=== PATIENT | female | born 1940 | race Caucasian/White ===

== ENCOUNTER 2020-10-24 09:56 | Outpatient (CLI) | payer MEDICARE, MEDICAID, SELFPAY ==
--- NOTE | 2020-10-24 10:08 | USCV_ITS ---
Delisa Plascencia Age: 80 Gender: F : 1940 Exam Date: 10/24/2020 10:23 Ordering Phys: Pallavi Quesada VULNERABILITY RESEARCHER VULNERABILITY RESEARCHER Technologist: Evangelina Arthur Exam Location: [facility] [place] Indication: LLE SWELLING HISTORY: LLE swelling PROCEDURES: On the left side, the common femoral, superficial femoral, profunda femoral, popliteal, posterior tibial, greater saphenous veins, and the peroneal trunk were identified and interrogated in the standard fashion. FINDINGS: Negative for DVT and superficial thrombus in LLE. CONCLUSIONS No evidence of left lower extremity DVT. Hieu Cheney MD (Electronically Signed) Final Date: 24 Oct 2020 13:13 S
== END 2020-10-24 09:57 | disposition home or self-care (01) ==
LOC: RAD 10:03
PROVIDERS: PCP Family Medicine; Visit Provider Registered Nurse
DX: M79.89 Other specified soft tissue disorders (principal); M79.662 Pain in left lower leg
CPT/HCPCS: 93971

== ENCOUNTER → 2021-08-18 14:04 | Outpatient (BNVA) | payer MEDICARE, MEDICAID, SELFPAY | PROVIDERS: PCP Family Medicine; Referring Provider Family Medicine; Visit Provider Orthopaedic Surgery | DX: M54.50 Low back pain, unspecified (principal) | CPT/HCPCS: 72110 ==

== ENCOUNTER → 2021-08-24 10:13 | Outpatient (BNVA) | payer MEDICARE, MEDICAID, SELFPAY | PROVIDERS: PCP Family Medicine; Referring Provider Orthopaedic Surgery; Visit Provider Anesthesiology Pain Medicine | DX: M48.062 Spinal stenosis, lumbar region with neurogenic claudication (principal); M47.816 Spondylosis without myelopathy or radiculopathy, lumbar region; M54.16 Radiculopathy, lumbar region; M79.605 Pain in left leg; Z79.891 Long term (current) use of opiate analgesic | CPT/HCPCS: 99204 ==

== ENCOUNTER 2022-03-21 03:42 | Emergency (ER) | payer MEDICARE, MEDICAID, SELFPAY ==
[2022-03-21 03:44] VITALS: BP 150/89; PULSE 63; RESP 17; TEMP 36.8; O2SAT 95; BMI 29.0
--- NOTE | 2022-03-21 04:06 | XRR_ITS ---
PROCEDURE INFORMATION: Exam: XR Chest Exam date and time: 03/21/2022 4:23 AM Age: 82 years old Clinical indication: Pain; Chest pressure; Additional info: Chest pain TECHNIQUE: Imaging protocol: Radiologic exam of the chest. Views: 1 view. COMPARISON: CR XR chest 2V* [id number] 12/21/2015 2:57 PM FINDINGS: Lungs: Some strandy opacities are seen in the right lower hemithorax likely representing atelectasis. Pleural spaces: There is blunting of the left costophrenic recess possibly secondary to a small left pleural effusion versus pleural scarring. Heart/Mediastinum: Unremarkable. No cardiomegaly. Bones/joints: Unremarkable. XR/XR chest 1V portable [id number] IMPRESSION: 1. The left hemidiaphragm is obscured likely secondary to a small left pleural effusion versus pleural scarring. 2. Strandy opacities in the right lung base most probably represents atelectasis.
--- NOTE | 2022-03-21 04:10 | ED_ITS ---
HPI - Chest Pain General: Chief Complaint: Chest Pain Stated Complaint: Chest Pain Time Seen by Provider: 03/21/22 03:45 Source: patient and EMS Mode of arrival: EMS Limitations: no limitations History of Present Illness: 82-year-old female states that she started having chest pain around 11 last night. States she felt like a band around her chest she states she does have reflux and has not been taking her medicine for that she states she took a Gas-X and her pain did not improve she did take an aspirin at home and 1 nitro in route states that she is currently pain-free she denies any diaphoresis or radiation of her pain. She denies any cough or fever. Associated symptoms: Deny abdominal pain, dyspnea, fever(s), nausea or vomiting Review of Systems Const: Denies: fever(s), chills, body aches or change in appetite Eyes: Denies: blurry vision or eye discomfort ENMT: Denies: throat pain or dental pain Card: Reports: chest pain Resp: Denies: dyspnea GI: Denies: abdominal pain, nausea, vomiting or diarrhea : Denies: dysuria Musc: Denies: neck pain or back pain Skin/Breast: Denies: rash Neuro: Denies: headache(s) Psych: Denies: depression Bert/Lymph: Denies: easy bruising All/Imm: Denies: urticaria PFSH ED PFSH: Medical History Chronic kidney disease Hypertension Parkinson disease Family History Other CAD (coronary artery disease) Cancer Chronic kidney disease (CKD) Dementia Diabetes Hyperlipidemia Hypertension Denies family history of Clotting disorder Psychiatric illness Suicide Anesthesia complication Bleeding disorder Family history of premature coronary artery disease Lung disease Stroke Social History Smoking and tobacco status: never smoked Second hand smoke exposure: No Alcohol intake: never Lives independently: Yes Household members: none Housing: Apartment Marital status: History of recent travel: No Physical Exam Const: COMMON NORMALS: no acute distress, patient oriented x3 and healthy appearing HENMT: COMMON NORMALS: normocephalic and atraumatic HEAD & SCALP: normocephalic and atraumatic Eye: COMMON NORMALS: Equal, round and reactive pupils present and EOMs intact bilaterally PUPIL: Yes Equal, round and reactive pupils present Neck/C-Spine: COMMON NORMALS: full ROM and supple Chest: COMMONS NORMALS: normal inspection of the chest and normal palpation of entire chest wall Resp: COMMON NORMALS: normal respiratory effort, No retractions, No use of accessory muscles and clear to auscultation bilaterally AUSCULTATION: clear to auscultation bilaterally Cardio: COMMON NORMALS: regular rate, regular rhythm and No murmurs present (Cardio) RATE: regular rate RHYTHM: regular rhythm GI: COMMON NORMALS: Normal to inspection, nondistended, normoactive bowel sounds present, Soft to palpation, non-tender and no masses PALPATION: Yes Soft to palpation Extremity: COMMON NORMALS: normal to inspection and full ROM Neuro: COMMON NORMALS: patient oriented x3, moves all extremities and no focal motor deficits Psych: COMMON NORMALS: mental status grossly normal, Normal thought process present and cooperative THOUGHT PROCESS: Normal thought process present Skin: COMMON NORMALS: no rashes or lesions noted and no wounds GENERAL SKIN EXAM: no rashes or lesions noted Course Vital Signs: Vital signs: Vital Signs Temperature 98.2 F 03/21/22 03:44 Pulse Rate 76 03/21/22 05:00 Respiratory Rate 20 H 03/21/22 05:00 Blood Pressure 152/91 03/21/22 05:00 Pulse Oximetry 93 03/21/22 05:00 Oxygen Delivery Me thod 03/21/22 03:44 MDM - Chest Pain Medical Decision Making Patient presents for chest pain is since been resolved. Patient is felt much improved here she is requested to nursing that she wanted to go home. I went and spoke to her at length informed her her first troponin was 14 would like to do a 2-hour troponin to trend it she states that she feels better and would like to just go home. She has medical decision-making capacity she refuses stay for 2-hour troponin she has been pain-free here she is to follow-up with her PCP and if she has any other pain she is return she understands agrees to this plan. Lab Data : 03/21/22 03:44 03/21/22 03:44 Laboratory Results WBC 9.2 10^3/uL (4.0-10.0) 03/21/22 03:44 RBC 5.16 10^6/uL (4.1-5.3) 03/21/22 03:44 Hgb 15.2 g/dL (11.5-15.3) 03/21/22 03:44 Hct 47.8 % (37.0-47.0) H 03/21/22 03:44 MCV 92.6 fl (81-99) 03/21/22 03:44 MCH 29.5 pg (28.0-34.0) 03/21/22 03:44 MCHC 31.8 g/dL (30.0-36.0) 03/21/22 03:44 RDW 14.3 % (12.1-15.1) 03/21/22 03:44 Plt Count 176 10^3/cmm (130-400) 03/21/22 03:44 MPV 11.6 fL (7.4-10.4) H 03/21/22 03:44 Neut % (Auto) 72.9 % 03/21/22 03:44 Lymph % (Auto) 15.3 % 03/21/22 03:44 [place] % (Auto) 6.4 % 03/21/22 03:44 Eos % (Auto) 3.7 % 03/21/22 03:44 Baso % (Auto) 0.9 % 03/21/22 03:44 Neut # (Auto) 6.71 10^3/uL (1.8-7.7) 03/21/22 03:44 Lymph # (Auto) 1.4 10^3/uL (0.8-4.8) 03/21/22 03:44 [place] # (Auto) 0.6 10^3/uL (0.2-0.9) 03/21/22 03:44 Eos # (Auto) 0.3 10^3/uL (0.0-0.8) 03/21/22 03:44 Baso # (Auto) 0.1 10^3/uL (0.0-0.1) 03/21/22 03:44 Nucleated RBC % (auto) 0 % 03/21/22 03:44 Nucleated RBCs # 0.0 /100WBC 03/21/22 03:44 Sodium 136 mmol/L (136-145) 03/21/22 03:44 Potassium 4.1 mmol/L (3.5-5.1) 03/21/22 03:44 Chloride 98 mmol/L (98-107) 03/21/22 03:44 Carbon Dioxide 31 mmol/L (22-29) H 03/21/22 03:44 Anion Gap 11.1 (5-19) 03/21/22 03:44 BUN 24 mg/dL (8-23) H 03/21/22 03:44 Creatinine 0.9 mg/dL (0.5-0.9) 03/21/22 03:44 GFR Calculation Not Reportable 03/21/22 03:44 Glucose 109 mg/dL (65-115) 03/21/22 03:44 Calculated Osmolality 287 mOsm/kg (285-295) 03/21/22 03:44 Calcium 9.9 mg/dL (8.5-10.5) 03/21/22 03:44 Total Bilirubin 0.5 mg/dL (0.15-1.2) 03/21/22 03:44 AST 14 U/L (0-32) 03/21/22 03:44 ALT 24 U/L (0-33) 03/21/22 03:44 Alkaline Phosphatase 86 U/L (35-105) 03/21/22 03:44 Troponin T Baseline 12 ng/L (0-10) H 03/21/22 03:44 Total Protein 6.5 g/dL (6.6-8.7) L 03/21/22 03:44 Albumin 3.7 g/dL (3.5-5.2) 03/21/22 03:44 Globulin 2.8 g/dL (1.3-4.6) 03/21/22 03:44 EKG Data EKG 1: I personally reviewed and interpreted this EKG as follows: EKG interpretation date: 03/21/22 EKG interpretation time: 03:52 Discharge Plan Discharge Patient Disposition: Home Clinical Impression: Chest pain Condition: Stable Prescriptions: No Action aspirin 81 mg tablet,delayed release (DR/EC) 81 mg PO DAILY trazodone 50 mg tablet 50 mg PO .HS cyclobenzaprine 5 mg tablet 5 mg PO TID PRN (Reason: muscle spasm) Qty: 60 0RF lorazepam [Ativan] 0.5 mg tablet 0.5 mg PO DAILY PRN (Reason: anxiety) Qty: 1 0RF Rx Instructions: Take 1 hour prior to procedure. tramadol 50 mg tablet 50 mg PO Q6H PRN losartan 50 mg tablet 50 mg PO DAILY omeprazole 20 mg capsule,delayed release(DR/EC) 20 mg PO DAILY ropinirole 4 mg tablet 4 mg PO TID amlodipine [Norvasc] 5 mg tablet 5 mg PO DAILY metoprolol tartrate 25 mg tablet 12.5 mg PO BID lovastatin 40 mg tablet 40 mg PO DAILY hydrochlorothiazide 12.5 mg tablet 12.5 mg PO DAILY pantoprazole [Protonix] 40 mg tablet,delayed release (DR/EC) 40 mg PO DAILY polyethylene glycol 3350 [Miralax] 17 gram/dose powder 17 gm PO DAILY nitroglycerin 0.4 mg tablet, sublingual 0.4 mg SUBLINGUAL Q5M PRN silver sulfadiazine [Silvadene] 1 % cream 1 applic TOPICAL DAILY Qty: 20 0RF Rx Instructions: apply a 1.5 mm thickness benzonatate [Tessalon Perles] 100 mg capsule 100 mg PO TID PRN (Reason: cough) 15 Days Qty: 45 0RF prednisone 20 mg tablet 20 mg PO DAILY Qty: 15 0RF Rx Instructions: Take 60 mg daily for days 1,2,3 Take 40mg daily for days 4, 5 Take 20 mg daily for days 6, 7 Discharge Orders: Discharge ED (Routine); Ordered 03/21/22 Ordered By: Belgica Caicedo Referrals: Pallavi Quesada FNP [Primary Care Provider] - 1-3 days Discharge Diet: Advance as tolerated Discharge Activity: Resume usual activity Patient Instructions: Chest Pain (ED) Coding Level of Care Code ED Head Orthopedic Team Physician for Chg Fwd Exam Comprehensive
[2022-03-21 04:15] LABS: Basophils # 0.1 10^3/uL (0.0-0.1); Basophils % 0.9 %; Eosinophils # 0.3 10^3/uL (0.0-0.8); Eosinophils % 3.7 %; Hematocrit 47.8 % (37.0-47.0); Hemoglobin 15.2 g/dL (11.5-15.3); Lymphocytes # 1.4 10^3/uL (0.8-4.8); Lymphocytes % 15.3 %; Mean Corpuscular HGB Conc 31.8 g/dL (30.0-36.0); Mean Corpuscular Hemoglobin 29.5 pg (28.0-34.0); Mean Corpuscular Volume 92.6 fl (81-99); Mean Platelet Volume 11.6 fL (7.4-10.4); Monocytes # 0.6 10^3/uL (0.2-0.9); Monocytes % 6.4 %; Neutrophils # 6.71 10^3/uL (1.8-7.7); Neutrophils % 72.9 %; Nucleated Red Blood Cells % 0 %; Platelet Count 176 10^3/cmm (130-400); Red Blood Count 5.16 10^6/uL (4.1-5.3); Red Cell Distribution Width 14.3 % (12.1-15.1); White Blood Count 9.2 10^3/uL (4.0-10.0)
[2022-03-21 04:31] LABS: Alanine Aminotransferase 24 U/L (0-33); Albumin Level 3.7 g/dL (3.5-5.2); Alkaline Phosphatase 86 U/L (35-105); Aspartate Amino Transferase 14 U/L (0-32); Blood Urea Nitrogen 24 mg/dL (8-23); Calcium 9.9 mg/dL (8.5-10.5); Carbon Dioxide 31 mmol/L (22-29); Chloride 98 mmol/L (98-107); Globulin 2.8 g/dL (1.3-4.6); Glucose 109 mg/dL (65-115); Osmolality Calculated 287 mOsm/kg (285-295); Sodium 136 mmol/L (136-145); Total Bilirubin 0.5 mg/dL (0.15-1.2); Total Protein 6.5 g/dL (6.6-8.7)
[2022-03-21 04:32] LABS: Troponin(5th) Baseline 12 ng/L (0-10)
[2022-03-21 04:41] LABS: Anion Gap 11.1 (5-19); Potassium 4.1 mmol/L (3.5-5.1)
[2022-03-21 05:00] VITALS: BP 152/91; PULSE 76; RESP 20; O2SAT 93
== END 2022-03-21 05:47 | disposition home or self-care (01) ==
PROVIDERS: Emergency Provider Emergency Medicine; PCP Registered Nurse
DX: R07.9 Chest pain, unspecified (principal); Z79.82 Long term (current) use of aspirin; I10 Essential (primary) hypertension; G20 Parkinson's disease
CPT/HCPCS: 71045; 80053; 84484; 85025; 99285

== ENCOUNTER → 2022-03-24 10:32 | Outpatient (BNVA) | payer MEDICARE, MEDICAID, SELFPAY | PROVIDERS: PCP Registered Nurse; Visit Provider Orthopaedic Surgery | DX: M25.551 Pain in right hip (principal) | CPT/HCPCS: 73502; 99203 ==

== ENCOUNTER 2022-10-22 15:04 | Emergency (ER) | payer MEDICARE, MEDICAID, SELFPAY ==
[2022-10-22] VITALS (43 sets, daily range): BP systolic 136–177; BP diastolic 78–120; PULSE 74–101; RESP 10–30; O2SAT 91–97
--- NOTE | 2022-10-22 15:13 | ECG_ITS ---
[facility] Test Date: 2022-10-22 Pat Name: Delisa Plascencia Department: Room: Gender: Female Production Control Specialist: : 1940 Requested By: Devin Saez Order Number: [id number] Tarik MD: Chloe Washington M.D. Measurements Intervals [address] Rate: 75 P: 8 MN: 151 QRS: -32 QRSD: 96 T: -13 QT: 407 QTc: 457 Interpretive Statements SINUS RHYTHM POSSIBLE LEFT ATRIAL ENLARGEMENT [-0.1mV P-WAVE IN V1/V2] LEFT AXIS DEVIATION [QRS AXIS < -30] PATTERN CONSISTENT WITH PULMONARY DISEASE POSSIBLE LEFT VENTRICULAR HYPERTROPHY [VOLTAGE CRITERIA PLUS LAE OR QRS WIDENING] Compared to ECG 11/25/2016 22:14:46 Left-axis deviation now present Electronically Signed On 10-23-2022 5:57:53 CDT by Chloe Washington M.D. [email or web address]
--- NOTE | 2022-10-22 15:13 | XRR_ITS ---
PROCEDURE INFORMATION: Exam: XR Chest Exam date and time: 10/22/2022 3:40 PM Age: 82 years old Clinical indication: Patient HX: Back pain she describes radiating to her chest she rates it an 8 of 10; Additional info: Chest pain TECHNIQUE: Imaging protocol: Radiologic exam of the chest. Views: 1 view. COMPARISON: CR XR chest 1V portable [id number] 03/21/2022 4:23 AM FINDINGS: Lungs: No focal airspace disease. Pleural spaces: Unremarkable. No pleural effusion. No pneumothorax. Heart/Mediastinum: Cardiomediastinal silhouette is within normal limits. Bones/joints: Unremarkable. XR/XR chest 1V portable [id number] IMPRESSION: No acute cardiopulmonary abnormality.
--- NOTE | 2022-10-22 15:15 | W.ED.CHESTPA ---
Documented by User: Devin Holt DO 10/24/22 07:05 HPI - Chest Pain General: Chief Complaint: Chest Pain Stated Complaint: chest pain Time Seen by Provider: 10/22/22 15:13 Source: patient Mode of arrival: ambulatory History of Present Illness: 82 yo female present to the ER with complaints of back pain. She had been sitting inside mostly resting she went outside to look at her cooper she began to have back pain she describes radiating to her chest she rates it an 8 of 10. She has no known cardiac history she went back inside and eventually called EMS. She was given 325 of aspirin she is also given Zofran 100 of fentanyl and nitro. She said she had no significant pain relief by the time she arrived here all the pain is gone. She does have osteoporosis and has had some pelvic bone fractures evidently that were idiopathic. She has no known cancer diagnosis. MD complaint: chest pain Onset (ago): minute(s) Timing of current episode: episodic Prior episodes: Yes Pain location: substernal Pain radiation: back Severity: mild Relieving factors: nothing Exacerbating factors: nothing Associated symptoms: Reports dyspnea; Deny abdominal pain, diaphoresis, fever(s), leg edema, nausea, palpitations, sense of impending doom, syncope or vomiting Treatment prior to arrival: aspirin, nitroglycerin and other (Zofran and fentanyl) Review of Systems Const: Denies: fever(s), chills, fatigue, malaise or diaphoresis Card: Reports: chest pain; Denies: palpitations or syncope Resp: Reports: dyspnea; Denies: productive cough or non-productive cough GI: Denies: abdominal pain, nausea or vomiting : Denies: flank pain, difficulty voiding, dysuria, urinary frequency or urinary urgency Skin/Breast: Denies: rash or pruritus PFS ED PFSH: Medical History Chronic kidney disease Hypertension Parkinson disease Family History Other CAD (coronary artery disease) Cancer Chronic kidney disease (CKD) Dementia Diabetes Hyperlipidemia Hypertension Denies family history of Clotting disorder Psychiatric illness Suicide Anesthesia complication Bleeding disorder Family history of premature coronary artery disease Lung disease Stroke Social History (Reviewed 10/22/22 @ 15:31 by FILI White Smoking and tobacco status: never smoked Second hand smoke exposure: No Alcohol intake: never Substance/Drug Use: never Lives independently: Yes Household members: none Housing: Apartment Marital status: Physical Exam Const: GENERAL APPEARANCE: cooperative and comfortable ORIENTATION/CONSCIOUSNESS: Yes awake, Yes oriented to person, Yes oriented to place and Yes oriented to time HENMT: COMMON NORMALS: normocephalic, atraumatic and hearing grossly normal bilaterally HEAD & SCALP: normocephalic and atraumatic Resp: COMMON NORMALS: normal respiratory effort, No retractions, No use of accessory muscles and clear to auscultation bilaterally AUSCULTATION: clear to auscultation bilaterally Cardio: COMMON NORMALS: regular rate, regular rhythm and No murmurs present (Cardio) RATE: regular rate RHYTHM: regular rhythm GI: COMMON NORMALS: Soft to palpation and No hepatosplenomegaly present AUSCULTATION: Yes normoactive bowel sounds PALPATION: Yes Soft to palpation, No Tenderness to palpation present (GI), No Guarding due to palpation present (GI) and Yes No hepatosplenomegaly present Extremity: COMMON NORMALS: normal to inspection, capillary refill normal, no clubbing, cyanosis or edema, no calf tenderness and no pedal edema Neuro: SENSORIUM/ORIENTATION: Yes oriented to person, Yes oriented to place and Yes oriented to time Skin: COMMON NORMALS: no rashes or lesions noted GENERAL SKIN EXAM: no rashes or lesions noted Course Vital Signs: Vital signs: Vital Signs Pulse Rate 101 H 10/22/22 19:58 Respiratory Rate 16 10/22/22 19:58 Blood Pressure 152/78 10/22/22 19:58 Pulse Oximetry 94 10/22/22 19:58 Oxygen Delivery Me thod Nasal Cannula 10/22/22 16:10 Oxygen Flow Rate 2 10/22/22 16:10 MDM - Chest Pain Medical Decision Making Care signed out to Dr. Herrmann at change of shift. See final notes for diagnosis and disposition. Received in checkout earlier from Dr. Alfaro. This lady has been hypertensive at times, although not severely. She was not hypoxic on room air. BC is normal. BMP is not remarkable. Delta troponin is 0.3. Creatinine is 0.7. EKG is not remarkable for ST change. Pain and shortness of breath are gone in this patient. With resolution of discomfort, no change in troponin, no significant hypoxia will be allowed discharged to follow-up. Discussed outpatient stress testing with the patient and her family. Have placed an order for this with case management. Lab Data 10/22/22 15:40 10/22/22 15:40 Radiology Impressions Chest X-Ray 10/22/22 15:13 IMPRESSION: No acute cardiopulmonary abnormality. Lumbar Spine X-Ray 10/22/22 15: IMPRESSION: No acute findings. Thoracic Spine X-Ray 10/22/22 15: IMPRESSION: There appears to be mild wedging of several midthoracic vertebral bodies, likely T6 through T9, age indeterminate. Consider CT for further evaluation. Laboratory Results WBC 9.0 10^3/uL (4.0-10.0) 10/22/22 15:40 RBC 4.47 10^6/uL (4.1-5.3) 10/22/22 15:40 Hgb 13.2 g/dL (11.5-15.3) 10/22/22 15:40 Hct 41.9 % (37.0-47.0) 10/22/22 15:40 MCV 93.7 fl (81-99) 10/22/22 15:40 MCH 29.5 pg (28.0-34.0) 10/22/22 15:40 MCHC 31.5 g/dL (30.0-36.0) 10/22/22 15:40 RDW 14.6 % (12.1-15.1) 10/22/22 15:40 Plt Count 203 10^3/cmm (130-400) 10/22/22 15:40 MPV 10.1 fL (7.4-10.4) 10/22/22 15:40 Neut % (Auto) 70.3 % 10/22/22 15:40 Lymph % (Auto) 17.4 % 10/22/22 15:40 Esmeralda % (Auto) 7.9 % 10/22/22 15:40 Eos % (Auto) 2.8 % 10/22/22 15:40 Baso % (Auto) 0.7 % 10/22/22 15:40 Neut # (Auto) 6.31 10^3/uL (1.8-7.7) 10/22/22 15:40 Lymph # (Auto) 1.6 10^3/uL (0.8-4.8) 10/22/22 15:40 Esmeralda # (Auto) 0.7 10^3/uL (0.2-0.9) 10/22/22 15:40 Eos # (Auto) 0.3 10^3/uL (0.0-0.8) 10/22/22 15:40 Baso # (Auto) 0.1 10^3/uL (0.0-0.1) 10/22/22 15:40 Nucleated RBC % (auto) 0 % 10/22/22 15:40 Nucleated RBCs # 0.0 /100WBC 10/22/22 15:40 Sodium 134 mmol/L (136-145) L 10/22/22 15:40 Potassium 3.8 mmol/L (3.5-5.1) 10/22/22 15:40 Chloride 98 mmol/L (98-107) 10/22/22 15:40 Carbon Dioxide 28 mmol/L (22-29) 10/22/22 15:40 Anion Gap 11.8 (5-19) 10/22/22 15:40 BUN 13 mg/dL (8-23) 10/22/22 15:40 Creatinine 0.7 mg/dL (0.5-0.9) 10/22/22 15:40 GFR Calculation Not Reportable 10/22/22 15:40 Glucose 86 mg/dL (65-115) 10/22/22 15:40 Calculated Osmolality 277 mOsm/kg (285-295) L 10/22/22 15:40 Calcium 8.5 mg/dL (8.5-10.5) 10/22/22 15:40 Total Bilirubin 0.4 mg/dL (0.15-1.2) 10/22/22 15:40 AST 12 U/L (0-32) 10/22/22 15:40 ALT 16 U/L (0-33) 10/22/22 15:40 Alkaline Phosphatase 282 U/L (35-105) H 10/22/22 15:40 Troponin T Baseline 12 ng/L (0-10) H 10/22/22 15:40 Troponin T 120 Minute 11.68 ng/L (0-10) H 10/22/22 18:03 Delta Troponin T -0.32 ABS# (0-10) L 10/22/22 18:03 Total Protein 5.4 g/dL (6.6-8.7) L 10/22/22 15:40 Albumin 3.6 g/dL (3.5-5.2) 10/22/22 15:40 Globulin 1.8 g/dL (1.3-4.6) 10/22/22 15:40 Discharge Plan Discharge Patient Disposition: Home Clinical Impression: Chest pain Condition: Stable Prescriptions: No Action aspirin 81 mg tablet,delayed release (DR/EC) 81 mg PO DAILY trazodone 50 mg tablet 50 mg PO BEDTIME cyclobenzaprine 5 mg tablet 5 mg PO TID PRN (Reason: muscle spasm) Qty: 60 0RF tramadol 50 mg tablet 50 mg PO Q6H PRN (Reason: Pain) losartan 50 mg tablet 50 mg PO DAILY ropinirole 4 mg tablet 4 mg PO TID amlodipine [Norvasc] 5 mg tablet 5 mg PO DAILY metoprolol tartrate 25 mg tablet 12.5 mg PO BID lovastatin 40 mg tablet 40 mg PO DAILY hydrochlorothiazide 12.5 mg tablet 12.5 mg PO DAILY pantoprazole [Protonix] 40 mg tablet,delayed release (DR/EC) 40 mg PO DAILY polyethylene glycol 3350 [Miralax] 17 gram/dose powder 17 gm PO DAILY PRN (Reason: Constipation) nitroglycerin 0.4 mg tablet, sublingual 0.4 mg SUBLINGUAL Q5M PRN (Reason: Chest Pain) silver sulfadiazine [Silvadene] 1 % cream 1 applic TOPICAL DAILY Qty: 20 0RF Rx Instructions: apply a 1.5 mm thickness primidone 50 mg tablet 50 mg PO DAILY potassium chloride 10 mEq tablet extended release 10 meq PO DAILY lidocaine 5 % adhesive patch,medicated 1 patch topical PRN PRN (Reason: Pain) gabapentin 100 mg capsule 100 mg PO TID celecoxib 50 mg capsule 50 mg PO BID diclofenac sodium 1 % gel 2 g TOPICAL PRN PRN (Reason: Pain) Discharge Orders: Discharge ED (Routine); Ordered 10/22/22 Ordered By: Colin Herrmann Referrals: Pallavi Quesada FNP [Primary Care Provider] - 4-7 days Patient Instructions: Chest Pain (ED) Activity Restrictions/Additional Instructions: Monitor blood pressure twice daily for the next few days, and report numbers to your physician. Case management will set you up for an outpatient stress test should your physician want to pursue that. You should get a call from them next week continue with your bone density scan set up on Tuesday, as this can provide more information as well as your outpatient follow-up appointments. Return for return of chest discomfort, shortness of breath, fever, mental status changes, or other concerning symptoms Coding Level of Care Code ED Gate Attendant for Chg Fwd Documented by User: Colin Herrmann DO 10/23/22 04:05 HPI - Chest Pain General: Chief Complaint: Chest Pain Stated Complaint: chest pain Time Seen by Provider: 10/22/22 15:13 PFSH ED PFSH: Medical History Chronic kidney disease Hypertension Parkinson disease Family History Other CAD (coronary artery disease) Cancer Chronic kidney disease (CKD) Dementia Diabetes Hyperlipidemia Hypertension Denies family history of Clotting disorder Psychiatric illness Suicide Anesthesia complication Bleeding disorder Family history of premature coronary artery disease Lung disease Stroke Social History Smoking and tobacco status: never smoked Second hand smoke exposure: No Alcohol intake: never Substance/Drug Use: never Lives independently: Yes Household members: none Housing: Apartment Marital status: Course Vital Signs: Vital signs: Vital Signs Pulse Rate 101 H 10/22/22 19:58 Respiratory Rate 16 10/22/22 19:58 Blood Pressure 152/78 10/22/22 19:58 Pulse Oximetry 94 10/22/22 19:58 Oxygen Delivery Me thod Nasal Cannula 10/22/22 16:10 Oxygen Flow Rate 2 10/22/22 16:10 MDM - Chest Pain Medical Decision Making Received in checkout earlier from Dr. Alfaro. This lady has been hypertensive at times, although not severely. She was not hypoxic on room air. BC is normal. BMP is not remarkable. Delta troponin is 0.3. Creatinine is 0.7. EKG is not remarkable for ST change. Pain and shortness of breath are gone in this patient. With resolution of discomfort, no change in troponin, no significant hypoxia will be allowed discharged to follow-up. Discussed outpatient stress testing with the patient and her family. Have placed an order for this with case management. Lab Data 10/22/22 15:40 10/22/22 15:40 Radiology Impressions Chest X-Ray 10/22/22 15:13 IMPRESSION: No acute cardiopulmonary abnormality. Lumbar Spine X-Ray 10/22/22 15:26 IMPRESSION: No acute findings. Thoracic Spine X-Ray 10/22/22 15: IMPRESSION: There appears to be mild wedging of several midthoracic vertebral bodies, likely T6 through T9, age indeterminate. Consider CT for further evaluation. Laboratory Results WBC 9.0 10^3/uL (4.0-10.0) 10/22/22 15:40 RBC 4.47 10^6/uL (4.1-5.3) 10/22/22 15:40 Hgb 13.2 g/dL (11.5-15.3) 10/22/22 15:40 Hct 41.9 % (37.0-47.0) 10/22/22 15:40 MCV 93.7 fl (81-99) 10/22/22 15:40 MCH 29.5 pg (28.0-34.0) 10/22/22 15:40 MCHC 31.5 g/dL (30.0-36.0) 10/22/22 15:40 RDW 14.6 % (12.1-15.1) 10/22/22 15:40 Plt Count 203 10^3/cmm (130-400) 10/22/22 15:40 MPV 10.1 fL (7.4-10.4) 10/22/22 15:40 Neut % (Auto) 70.3 % 10/22/22 15:40 Lymph % (Auto) 17.4 % 10/22/22 15:40 Esmeralda % (Auto) 7.9 % 10/22/22 15:40 Eos % (Auto) 2.8 % 10/22/22 15:40 Baso % (Auto) 0.7 % 10/22/22 15:40 Neut # (Auto) 6.31 10^3/uL (1.8-7.7) 10/22/22 15:40 Lymph # (Auto) 1.6 10^3/uL (0.8-4.8) 10/22/22 15:40 Esmeralda # (Auto) 0.7 10^3/uL (0.2-0.9) 10/22/22 15:40 Eos # (Auto) 0.3 10^3/uL (0.0-0.8) 10/22/22 15:40 Baso # (Auto) 0.1 10^3/uL (0.0-0.1) 10/22/22 15:40 Nucleated RBC % (auto) 0 % 10/22/22 15:40 Nucleated RBCs # 0.0 /100WBC 10/22/22 15:40 Sodium 134 mmol/L (136-145) L 10/22/22 15:40 Potassium 3.8 mmol/L (3.5-5.1) 10/22/22 15:40 Chloride 98 mmol/L (98-107) 10/22/22 15:40 Carbon Dioxide 28 mmol/L (22-29) 10/22/22 15:40 Anion Gap 11.8 (5-19) 10/22/22 15:40 BUN 13 mg/dL (8-23) 10/22/22 15:40 Creatinine 0.7 mg/dL (0.5-0.9) 10/22/22 15:40 GFR Calculation Not Reportable 10/22/22 15:40 Glucose 86 mg/dL (65-115) 10/22/22 15:40 Calculated Osmolality 277 mOsm/kg (285-295) L 10/22/22 15:40 Calcium 8.5 mg/dL (8.5-10.5) 10/22/22 15:40 Total Bilirubin 0.4 mg/dL (0.15-1.2) 10/22/22 15:40 AST 12 U/L (0-32) 10/22/22 15:40 ALT 16 U/L (0-33) 10/22/22 15:40 Alkaline Phosphatase 282 U/L (35-105) H 10/22/22 15:40 Troponin T Baseline 12 ng/L (0-10) H 10/22/22 15:40 Troponin T 120 Minute 11.68 ng/L (0-10) H 10/22/22 18:03 Delta Troponin T -0.32 ABS# (0-10) L 10/22/22 18:03 Total Protein 5.4 g/dL (6.6-8.7) L 10/22/22 15:40 Albumin 3.6 g/dL (3.5-5.2) 10/22/22 15:40 Globulin 1.8 g/dL (1.3-4.6) 10/22/22 15:40 Discharge Plan Discharge Patient Disposition: Home Clinical Impression: Chest pain Condition: Stable Prescriptions: No Action aspirin 81 mg tablet,delayed release (DR/EC) 81 mg PO DAILY trazodone 50 mg tablet 50 mg PO BEDTIME cyclobenzaprine 5 mg tablet 5 mg PO TID PRN (Reason: muscle spasm) Qty: 60 0RF tramadol 50 mg tablet 50 mg PO Q6H PRN (Reason: Pain) losartan 50 mg tablet 50 mg PO DAILY ropinirole 4 mg tablet 4 mg PO TID amlodipine [Norvasc] 5 mg tablet 5 mg PO DAILY metoprolol tartrate 25 mg tablet 12.5 mg PO BID lovastatin 40 mg tablet 40 mg PO DAILY hydrochlorothiazide 12.5 mg tablet 12.5 mg PO DAILY pantoprazole [Protonix] 40 mg tablet,delayed release (DR/EC) 40 mg PO DAILY polyethylene glycol 3350 [Miralax] 17 gram/dose powder 17 gm PO DAILY PRN (Reason: Constipation) nitroglycerin 0.4 mg tablet, sublingual 0.4 mg SUBLINGUAL Q5M PRN (Reason: Chest Pain) silver sulfadiazine [Silvadene] 1 % cream 1 applic TOPICAL DAILY Qty: 20 0RF Rx Instructions: apply a 1.5 mm thickness primidone 50 mg tablet 50 mg PO DAILY potassium chloride 10 mEq tablet extended release 10 meq PO DAILY lidocaine 5 % adhesive patch,medicated 1 patch topical PRN PRN (Reason: Pain) gabapentin 100 mg capsule 100 mg PO TID celecoxib 50 mg capsule 50 mg PO BID diclofenac sodium 1 % gel 2 g TOPICAL PRN PRN (Reason: Pain) Discharge Orders: Discharge ED (Routine); Ordered 10/22/22 Ordered By: Colin Herrmann Referrals: Pallavi Quesada FNP [Primary Care Provider] - 4-7 days Patient Instructions: Chest Pain (ED) Activity Restrictions/Additional Instructions: Monitor blood pressure twice daily for the next few days, and report numbers to your physician. Case management will set you up for an outpatient stress test should your physician want to pursue that. You should get a call from them next week continue with your bone density scan set up on Tuesday, as this can provide more information as well as your outpatient follow-up appointments. Return for return of chest discomfort, shortness of breath, fever, mental status changes, or other concerning symptoms Coding Level of Care Code ED Gate Attendant for Kunal Chavez
--- NOTE | 2022-10-22 15:26 | XRR_ITS ---
PROCEDURE INFORMATION: Exam: XR Thoracic Spine Exam date and time: 10/22/2022 3:41 PM Age: 82 years old Clinical indication: Pain in thoracic spine; Other: Back pain she describes radiating to her chest she rates it an 8 of 10 TECHNIQUE: Imaging protocol: Radiologic exam of the thoracic spine. Views: 3 views. COMPARISON: CR XR chest 1V portable [id number] 10/22/2022 3:40 PM FINDINGS: Bones/joints: There appears to be mild wedging of several midthoracic vertebral bodies, likely T6 through T9, age indeterminate. No malalignment. Osteopenia. Soft tissues: Unremarkable. XR/XR thoracic spine 3V* [id number] IMPRESSION: There appears to be mild wedging of several midthoracic vertebral bodies, likely T6 through T9, age indeterminate. Consider CT for further evaluation.
--- NOTE | 2022-10-22 15:26 | XRR_ITS ---
PROCEDURE INFORMATION: Exam: XR Lumbosacral Spine Exam date and time: 10/22/2022 3:47 PM Age: 82 years old Clinical indication: Patient HX: Back pain she describes radiating to her chest she rates it an 8 of 10 TECHNIQUE: Imaging protocol: Radiologic exam of the lumbosacral spine. Views: 2 or 3 views. COMPARISON: CR XR lumbar spine min 4V [id number] 08/18/2021 2:12 PM FINDINGS: Bones/joints: No acute fracture. Levocurvature of the lumbar spine. Similar mild irregularity of the superior endplate of L2. Moderate degenerative disc disease at L3-L4 and L5-S1. Osteopenia. Soft tissues: Unremarkable. Vasculature: Atherosclerotic calcification of the abdominal aorta. XR/XR lumbar spine 2-3V* [id number] IMPRESSION: No acute findings.
[2022-10-22 15:53] LABS: Basophils # 0.1 10^3/uL (0.0-0.1); Basophils % 0.7 %; Eosinophils # 0.3 10^3/uL (0.0-0.8); Eosinophils % 2.8 %; Hematocrit 41.9 % (37.0-47.0); Hemoglobin 13.2 g/dL (11.5-15.3); Lymphocytes # 1.6 10^3/uL (0.8-4.8); Lymphocytes % 17.4 %; Mean Corpuscular HGB Conc 31.5 g/dL (30.0-36.0); Mean Corpuscular Hemoglobin 29.5 pg (28.0-34.0); Mean Corpuscular Volume 93.7 fl (81-99); Mean Platelet Volume 10.1 fL (7.4-10.4); Monocytes # 0.7 10^3/uL (0.2-0.9); Monocytes % 7.9 %; Neutrophils # 6.31 10^3/uL (1.8-7.7); Neutrophils % 70.3 %; Nucleated Red Blood Cells % 0 %; Platelet Count 203 10^3/cmm (130-400); Red Blood Count 4.47 10^6/uL (4.1-5.3); Red Cell Distribution Width 14.6 % (12.1-15.1)
[2022-10-22 16:18] LABS: Alanine Aminotransferase 16 U/L (0-33); Albumin Level 3.6 g/dL (3.5-5.2); Alkaline Phosphatase 282 U/L (35-105); Anion Gap 11.8 (5-19); Aspartate Amino Transferase 12 U/L (0-32); Blood Urea Nitrogen 13 mg/dL (8-23); Calcium 8.5 mg/dL (8.5-10.5); Carbon Dioxide 28 mmol/L (22-29); Chloride 98 mmol/L (98-107); Creatinine Clr Calc Pharmacy 51.4073; Globulin 1.8 g/dL (1.3-4.6); Glucose 86 mg/dL (65-115); Osmolality Calculated 277 mOsm/kg (285-295); Potassium 3.8 mmol/L (3.5-5.1); Sodium 134 mmol/L (136-145); Total Bilirubin 0.4 mg/dL (0.15-1.2); Total Protein 5.4 g/dL (6.6-8.7)
[2022-10-22 16:21] LABS: Troponin(5th) Baseline 12 ng/L (0-10)
--- NOTE | 2022-10-22 17:22 | ECG_ITS ---
[facility] Test Date: 2022-10-22 Pat Name: Delisa Plascencia Department: Room: Gender: Female [employer]: : 1940 Requested By: Devin Saez Order Number: [id number] Tarik MD: Chloe Washington M.D. Measurements Intervals [place] Rate: 80 P: 9 LA: 155 QRS: -21 QRSD: 89 T: -4 QT: 375 QTc: 433 Interpretive Statements SINUS RHYTHM POSSIBLE LEFT ATRIAL ENLARGEMENT [-0.1mV P-WAVE IN V1/V2] BORDERLINE LEFT AXIS DEVIATION [QRS AXIS < -20] POSSIBLE LEFT VENTRICULAR HYPERTROPHY [VOLTAGE CRITERIA PLUS LAE OR QRS WIDENING] Compared to ECG 10/22/2022 15:21:57 No significant changes Electronically Signed On 10-23-2022 6:18:16 CDT by Chloe Washington M.D. [email or web address] mary[facility], [place] [id number]
--- NOTE | 2022-10-22 18:48 | PC.NURSE ---
Pt blood pressure was reading high on automatic cuff, check BP manually twice and it was 150/85 and 158/87. [address] Dr. Herrmann.
[2022-10-22 19:26] LABS: Troponin 5 2HR 11.68 ng/L (0-10)
[2022-10-22 19:28] LABS: Troponin 5 2HR Delta -0.32 ABS# (0-10)
--- NOTE | 2022-10-24 06:02 | DCPLANNER ---
Addendum entered by Karo Lemus 01/14/23 07:05: bdc manager received the following message from centralized scheduling regarding follow up testing: Lisandra lala [facility] called and cancelled this test on 12-08-22. We have made it inactive Original Note: bdc manager had message to schedule an outpatient stress test for patient. bdc manager faxed signed order to centralized scheduling, who will call patient with appointment information.
== END 2022-10-22 20:03 | disposition home or self-care (01) ==
PROVIDERS: Family Medicine; Emergency Provider Emergency Medicine; PCP Registered Nurse
DX: R07.9 Chest pain, unspecified (principal); Z79.82 Long term (current) use of aspirin; I12.9 Hypertensive chronic kidney disease with stage 1 through stage 4 chronic kidney disease, or unspecified chronic kidney disease; N18.9 Chronic kidney disease, unspecified; G20 Parkinson's disease
CPT/HCPCS: 71045; 72072; 72100; 80053; 84484; 85025; 93005; 99285

== ENCOUNTER → 2023-01-13 12:53 | Outpatient (BNVA) | payer MEDICARE, MEDICAID, SELFPAY | PROVIDERS: PCP Registered Nurse; Referring Provider Nurse Practitioner Family; Visit Provider Physician Assistant | DX: M80.08XA Age-related osteoporosis with current pathological fracture, vertebra(e), initial encounter for fracture | CPT/HCPCS: 72110; 72220; 99204 ==

== ENCOUNTER 2023-02-14 10:46 | Outpatient (CLI) | payer MEDICARE, MEDICAID, SELFPAY ==
--- NOTE | 2023-02-14 11:00 | MR_ITS ---
WS: [id number] MRI THORACIC SPINE WITHOUT CONTRAST TECHNIQUE: Sagittal T1, T2 and STIR imaging. Axial T2 imaging. Noncontrast imaging obtained. CLINICAL INFORMATION: SPINAL STENOSIS COMPARISON: None. FINDINGS: Mild thoracic curve. Mild thoracic kyphosis. No acute compression fractures. Mild chronic appearing a nterior wedging at T7. Mild chronic appearing compression superior endplate at T1. Mild disc bulging at T11-T12 and T12-L1. Cord signal is normal. No high-grade central canal stenosis. Mild central canal stenosis cervical spine on the clinic administrator imaging at C4-C5 and C5-C6. Normal paravertebral soft tissues. Normal caliber thoracic aorta. Incidental aberrant RIGHT subclavia n artery. Adrenal glands are normal. Partially visualized LEFT parapelvic renal cysts. IMPRESSION: 1. Mild chronic appearing anterior wedging at T7. Mild chronic appearing compression superior endpla te of T1. 2. No acute compression fractures. 3. Mild facet arthropathy lower thoracic spine. 4. Cord signal appears normal. 5. No high-grade central canal stenosis.
--- NOTE | 2023-02-14 11:00 | MR_ITS ---
WS: [id number] MRI LUMBAR SPINE NONCONTRAST TECHNIQUE: Sagittal T1, T2 and STIR imaging. Axial T1 and T2 imaging. CLINICAL INFORMATION: See DX COMPARISON: Outside MRI 07/24/2021 FINDINGS: Mild lumbar curve. No acute compression. Slight anterolisthesis L5 on S1. Mild disc bulging worse at L2-L3 L3-L4 and L4-L5 similar to the prior study. No acute appearing compression fractures. L1-L2: Normal. L2-L3: Mild annular bulging. Narrowing of the RIGHT subarticular recess with impingement on the trave rsing RIGHT L3 nerve root. Mild facet arthropathy. Mild RIGHT foraminal narrowing. LEFT foramen is pa tent. L3-L4: Mild disc bulge with narrowing of the RIGHT subarticular recess. Mild facet arthropathy. Moder ate RIGHT and mild LEFT foraminal narrowing. Moderate facet arthropathy. L4-L5: Mild disc bulging with slight effacement of the ventral thecal sac. Mild LEFT foraminal narrow ing. Mild facet arthropathy with small facet effusions. Spinal canal and RIGHT foramen are patent. L5-S1: Slight anterolisthesis. Mild annular bulging. Moderate facet arthropathy with small facet effu sions. Mild LEFT foraminal narrowing. LEFT peripelvic renal cysts. Partially visualized bilateral insufficiency fractures involving the sacral ala with a small amount o f edema. This is only partially visualized. IMPRESSION: 1. No acute compression fractures. 2. Partially visualized bilateral insufficiency fractures involving the sacral ala with a small amou nt of edema. This is only partially visualized. 3. Impingement RIGHT L2-3 subarticular recess with a small RIGHT subarticular protrusion. Mild RIGHT L2-3 foraminal narrowing. 4. Moderate RIGHT L3-4 foraminal narrowing with narrowing of the RIGHT subarticular recess. 5. Mild LEFT L4-5 foraminal narrowing. 6. Mild LEFT L5-S1 bony foraminal narrowing. 7. Moderate facet arthropathy L4-L5 and L5-S1 with small facet effusions.
== END 2023-02-14 10:47 | disposition home or self-care (01) ==
PROVIDERS: PCP Registered Nurse; Visit Provider Physician Assistant
DX: M48.062 Spinal stenosis, lumbar region with neurogenic claudication (principal); M54.16 Radiculopathy, lumbar region; M48.54XA Collapsed vertebra, not elsewhere classified, thoracic region, initial encounter for fracture; M47.814 Spondylosis without myelopathy or radiculopathy, thoracic region; M84.48XA Pathological fracture, other site, initial encounter for fracture; M47.817 Spondylosis without myelopathy or radiculopathy, lumbosacral region
CPT/HCPCS: 72146; 72148

== ENCOUNTER 2024-08-27 12:13 | Outpatient (CLI) | payer MEDICARE, MEDICAID, SELFPAY ==
--- NOTE | 2024-08-27 12:19 | USR_ITS ---
PROCEDURE INFORMATION: Exam: US Duplex Bilateral Lower Extremity Arteries Exam date and time: 08/27/2024 12:29 PM Age: 84 years old Clinical indication: Pain; Leg, lower; Bilateral; Additional info: Arterial insufficiency TECHNIQUE: Imaging protocol: Real-time ultrasound scan of the arteries of the bilateral lower extremities with 2-D hines scale, color Doppler flow and spectral waveform analysis. Images documented and saved. COMPARISON: No relevant prior studies available. FINDINGS: Right common femoral artery: No occlusion or significant stenosis. Normal waveform. Right superficial femoral artery: No occlusion or significant stenosis. Normal waveform. Right popliteal artery: No occlusion or significant stenosis. Normal waveform. Right calf/foot arteries: No occlusion or significant stenosis in the visualized arteries. Normal waveforms. Dorsalis pedis artery is patent. Left common femoral artery: No occlusion or significant stenosis. Normal waveform. Left superficial femoral artery: No occlusion or significant stenosis. Normal waveform. Left popliteal artery: No occlusion or significant stenosis. Normal waveform. Left calf/foot arteries: No occlusion or significant stenosis in the visualized arteries. Normal waveforms. Dorsalis pedis artery is patent. The posterior tibial artery and DP could not be evaluated due to the patient's inability to tolerate this portion of the exam. ABIs could not be obtained. US/[place] [id number] IMPRESSION: No stenosis or occlusion.
== END 2024-08-27 12:14 | disposition home or self-care (01) ==
LOC: RAD 12:14
PROVIDERS: PCP Registered Nurse; Visit Provider Nurse Practitioner Family
DX: I77.1 Stricture of artery (principal)
CPT/HCPCS: 93925

== ENCOUNTER 2024-11-10 10:31 | Inpatient (IN) | payer OTHER, MEDICAID, SELFPAY ==
[2024-11-10] VITALS (55 sets, daily range): BP systolic 81–158; BP diastolic 34–97; PULSE 54–175; RESP 15–20; O2SAT 92–100
--- NOTE | 2024-11-10 10:44 | XRR_ITS ---
PROCEDURE INFORMATION: Exam: XR Chest Exam date and time: 11/10/2024 10:45 AM Age: 84 years old Clinical indication: Device placement; Ett placement (vent status); Additional info: Tube placement TECHNIQUE: Imaging protocol: Radiologic exam of the chest. Views: 1 view. COMPARISON: CR XR chest 1V portable [id number] 10/22/2022 3:40 PM FINDINGS: Tubes, catheters and devices: NG tube is in the subdiaphragmatic tissues. No consolidation. Endotracheal tube 18 mm above the peggy. Right central line is in the cavoatrial junction. Lungs: Low lung volumes. The lungs are otherwise clear Pleural spaces: Unremarkable. No pleural effusion. No pneumothorax. Heart/Mediastinum: Unremarkable. No cardiomegaly. Bones/joints: Unremarkable. XR/XR chest 1V portable [id number] IMPRESSION: 1. No acute findings. 2. Low lung volumes. 3. Right central line in the SVC 4. Endotracheal tube above the peggy 5. NG tube is subdiaphragmatic
--- NOTE | 2024-11-10 10:44 | ECG_ITS ---
[employer] [facility] Test Date: 2024-11-10 Pat Name: Delisa Plascencia Department: Room: Gender: Female Concept Artist: : 1940 Requested By: Yohannes Dennis Order Number: [id number] Reading MD: ANDREW ELIZALDE Measurements Intervals [place] Rate: 178 P: 0 AL: 0 QRS: -33 QRSD: 149 T: 60 QT: 265 QTc: 456 Interpretive Statements ATRIAL FIBRILLATION WITH RAPID VENTRICULAR RESPONSE WITH ABERRANT CONDUCTION OR VENTRICULAR PREMATURE COMPLEXES LEFT AXIS DEVIATION [QRS AXIS < -30] RIGHT BUNDLE BRANCH BLOCK [120+ ms QRS DURATION, UPRIGHT V1, 40+ ms S IN I/aVL/V4/V5/V6] ANTERIOR MYOCARDIAL INFARCTION , OF INDETERMINATE AGE [40+ ms Q WAVE AND/OR ST/T ABNORMALITY IN V3/V4] ST DEPRESSION, CONSIDER SUBENDOCARDIAL INJURY [0.1+ mV ST DEPRESSION] CRITICAL TEST RESULT Compared to ECG 10/22/2022 17:22:18 Ventricular premature complex(es) now present Aberrant conduction of supraventricular beat(s) now present Electronically Signed On 11-10-2024 23:47:19 CDT by ANDREW ELIZALDE [email or web address]
[2024-11-10] MEDS: fentaNYL 1,000 MCG/100 ML BAG 2.5 MCG IV (10:52)
[2024-11-10] MEDS: norepinephrine 4 MG/250 ML BAG 30 MG IV (10:53)
--- NOTE | 2024-11-10 10:58 | W.ED.GENADLT ---
HPI - General Adult General: Chief complaint: Cardiac Arrest/CPR Stated complaint: chest pain Time Seen by Provider: 11/10/24 10:49 Source: EMS Mode of arrival: EMS Limitations: altered mental status History of Present Illness: 84-year-old female who was brought in by ambulance today states that they were called for shortness of breath when they arrived to her she has agonal and then had cardiac arrest that placed an i-gel he did they state CPR for roughly 10 to 15 minutes did 3 rounds of epinephrine did achieve ROSC however on an epinephrine drip. Patient did not receive any paralytics she is not responsive here to verbal or painful stimuli Related Data Home Medications ?Medication ?Instructions ?Recorded ?Confirmed lovastatin 40 mg tablet 40 mg PO DAILY 07/26/19 11/10/24 metoprolol tartrate 25 mg tablet 12.5 mg PO BID 07/26/19 11/10/24 nitroglycerin 0.4 mg sublingual 0.4 mg sublingual Q5M PRN Chest 07/26/19 11/10/24 tablet Pain pantoprazole 40 mg tablet,delayed 40 mg PO BID 07/26/19 11/10/24 release (Protonix) polyethylene glycol 3350 17 17 gm PO DAILY PRN Constipation 07/26/19 11/10/24 gram/dose oral powder (Miralax) ropinirole 4 mg tablet 6 mg PO TID 07/26/19 11/10/24 aspirin 81 mg tablet,delayed 81 mg PO DAILY 08/24/21 11/10/24 release gabapentin 100 mg capsule 100 mg PO TID 10/22/22 11/10/24 potassium chloride 10 mEq 10 meq PO DAILY 10/22/22 11/10/24 tablet,extended release carbidopa ER 25 mg-levodopa 100 mg 1 tab PO TID 11/10/24 11/10/24 tablet,extended release fluorouracil 5 % topical cream 1 applic topical BID 11/10/24 11/10/24 isosorbide mononitrate 60 mg 60 mg PO QAM 11/10/24 11/10/24 tablet,extended release 24 hr loratadine 10 mg tablet 10 mg PO DAILY 11/10/24 11/10/24 mometasone-formoterol HFA 200 2 puff inhalation BID 11/10/24 11/10/24 mcg-5 mcg/actuation aerosol inhaler (Dulera) trazodone 100 mg tablet 100 mg PO BEDTIME 11/10/24 11/10/24 valsartan 160 1 tab PO DAILY 11/10/24 11/10/24 mg-hydrochlorothiazide 12.5 mg tablet Allergies Allergy/AdvReac Type Severity Reaction Status Date / Time morphine Allergy rash Verified 01/13/23 12:56 albuterol sulfate Allergy Unknown Uncoded 02/03/23 13:21 Review of Systems General: Reports: ROS unobtainable due to mental status PFSH ED PFSH: Medical History Parkinson disease Chronic kidney disease Hypertension Family History Other CAD (coronary artery disease) Cancer Chronic kidney disease (CKD) Dementia Diabetes Hyperlipidemia Hypertension Denies family history of Clotting disorder Psychiatric illness Suicide Anesthesia complication Bleeding disorder Family history of premature coronary artery disease Lung disease Stroke Social History Smoking and tobacco/nicotine status: never used tobacco/nicotine Second hand smoke exposure: No Alcohol intake: never Substance/Drug Use: never Lives independently: Yes Household members: none Housing: Apartment Marital status: Physical Exam Const: COMMON NORMALS: negative for patient oriented x3 HENMT: COMMON NORMALS: normocephalic and atraumatic HEAD & SCALP: normocephalic and atraumatic Eye: COMMON NORMALS: Equal, round and reactive pupils present and EOMs intact bilaterally PUPIL: Yes Equal, round and reactive pupils present Neck/C-Spine: COMMON NORMALS: full ROM and supple Chest: COMMONS NORMALS: normal inspection of the chest Resp: OTHER: Not take any breaths on her own does have an Igel in place Cardio: RATE: tachycardic RHYTHM: abnormal rhythm irregularly irregular GI: COMMON NORMALS: Normal to inspection, nondistended, normoactive bowel sounds present Extremity: COMMON NORMALS: normal to inspection Neuro: COMMON NORMALS: negative for patient oriented x3 Psych: COMMON NORMALS: negative for Normal thought process present THOUGHT PROCESS: abnormal Skin: COMMON NORMALS: no rashes or lesions noted and no wounds GENERAL SKIN EXAM: no rashes or lesions noted Procedures Central Line Placement Right IJ: Time Out Performed: Yes Patient Placed on Monitor/Pulse Ox: Yes MD Prep: mask, gown and gloves Central Line Prep: Povidone-Iodine 1% Ultrasound Used for Placement: Yes Central Line Lumen Inserted: triple Post Procedure: sutured in place, good blood return, all ports aspirated, flushed, capped and sterile dressing applied Post Procedure X-Ray: tip of catheter in good position and no pneumothorax seen Patient Tolerated Procedure: well Complications: none Intubation Time out performed: Yes Laryngoscope: Maurice ET Tube Size: 8 ET Tube Uncuffed: No Tube Secured Depth (cm): 24 Tube Secured Location: lips Tube Placement Confirmation: visualized tube passing through cords, equal breath sounds bilaterally, no breath sounds over epigastrium and confirmation by capnometry Patient Tolerated Procedure: well Intubation Complications: none Course Vital Signs: Vital signs: Vital Signs Pulse Rate 56 L 11/10/24 12:45 Respiratory Rate 16 11/10/24 12:45 Blood Pressure 127/71 11/10/24 12:45 Pulse Oximetry 97 11/10/24 12:45 Oxygen Delivery Me thod Mechanical Ventil ation 11/10/24 11:49 Fraction of Inspir ed Oxygen 50 11/10/24 11:56 MDM - General Adult Medical Decision Making Patient presents here after cardiac arrest I did achieve ROSC in the field she was initially in A-fib here started on amiodarone she is converted been able to wean off her pressors she was intubated in the ER and had a central line placed spoke to hospitalist will admit. Medical Records I reviewed the patient's medical records. Lab Data I reviewed the patient's lab results. 11/10/24 10:56 11/10/24 10:56 Radiology Impressions Chest X-Ray 11/10/24 10:44 IMPRESSION: 1. No acute findings. 2. Low lung volumes. 3. Right central line in the SVC 4. Endotracheal tube above the peggy 5. NG tube is subdiaphragmatic Laboratory Results WBC 21.74 10^3/uL (3.29-11.43) H 11/10/24 10:56 RBC 5.15 10^6/uL (3.85-5.65) 11/10/24 10:56 Hgb 14.80 g/dL (11.27-16.99) 11/10/24 10:56 Hct 47.6 % (36-47) H 11/10/24 10:56 MCV 92.4 fl (85-98) 11/10/24 10:56 MCH 28.7 pg (27-33) 11/10/24 10:56 MCHC 31.1 g/dL (30-55) 11/10/24 10:56 RDW 14.0 % (12.1-15.1) 11/10/24 10:56 Plt Count 180 10^3/cmm (157-399) 11/10/24 10:56 MPV 11.8 fL (7.4-10.4) H 11/10/24 10:56 Neut % (Auto) 76.1 % 11/10/24 10:56 Lymph % (Auto) 15.9 % 11/10/24 10:56 [place] % (Auto) 2.9 % 11/10/24 10:56 Eos % (Auto) 0.6 % 11/10/24 10:56 Baso % (Auto) 0.5 % 11/10/24 10:56 Neut # (Auto) 16.57 10^3/uL (1.8-7.7) H 11/10/24 10:56 Lymph # (Auto) 3.5 10^3/uL (0.8-4.8) 11/10/24 10:56 [place] # (Auto) 0.6 10^3/uL (0.2-0.9) 11/10/24 10:56 Eos # (Auto) 0.1 10^3/uL (0.0-0.8) 11/10/24 10:56 Baso # (Auto) 0.1 10^3/uL (0.0-0.1) 11/10/24 10:56 Nucleated RBC % (auto) 0 % 11/10/24 10:56 Nucleated RBCs # 0.0 /100WBC 11/10/24 10:56 PT 16.20 SECONDS (12.1-14.9) H 11/10/24 10:56 INR 1.21 (0.8-1.2) H 11/10/24 10:56 D-Dimer >= 20.00 ug/mLFEU (0-0.59) H 11/10/24 10:56 Specimen Type Arterial 11/10/24 11:18 Sample Site Radial, right 11/10/24 11:18 ABG pH 7.34 (7.35-7.45) L 11/10/24 11:18 ABG pCO2 35.7 mmHg (35-45) 11/10/24 11:18 ABG pO2 213.0 mmHg (80.0-100.0) H 11/10/24 11:18 ABG PO2/FiO2 Ratio 213 11/10/24 11:18 ABG HCO3 19.2 mmol/L (22-26) L 11/10/24 11:18 ABG Base Excess -5.8 mmol/L (-2.0-2.0) L 11/10/24 11:18 [place] Test Pos 11/10/24 11:18 Hematocrit 47.2 % (37-47) H 11/10/24 11:18 O2 Delivery Device Vent 11/10/24 11:18 FiO2 100.0 % 11/10/24 11:18 Tidal Volume 0.35 11/10/24 11:18 PEEP 6.0 cmH20 11/10/24 11:18 Human Relations Professor ID glc 11/10/24 11:18 Sodium 137 mmol/L (136-145) 11/10/24 10:56 Potassium 3.1 mmol/L (3.5-5.1) L 11/10/24 10:56 Chloride 102 mmol/L (98-107) 11/10/24 10:56 Carbon Dioxide 16 mmol/L (22-29) L 11/10/24 10:56 Anion Gap 22.1 (5-19) H 11/10/24 10:56 BUN 19 mg/dL (8-23) 11/10/24 10:56 Creatinine 1.3 mg/dL (0.5-0.9) H 11/10/24 10:56 GFR Calculation Not Reportable 11/10/24 10:56 Glucose 235 mg/dL (65-115) H 11/10/24 10:56 Calculated Osmolality 294 mOsm/kg (285-295) 11/10/24 10:56 Lactic Acid 5.6 mmol/L (0.5-2.2) H* 11/10/24 10:56 Calcium 9.0 mg/dL (8.5-10.5) 11/10/24 10:56 Magnesium 1.9 mg/dL (1.7-2.3) 11/10/24 10:56 Total Bilirubin 0.7 mg/dL (0.15-1.2) 11/10/24 10:56 AST 188 U/L (0-32) H 11/10/24 10:56 ALT 186 U/L (0-33) H 11/10/24 10:56 Alkaline Phosphatase 51 U/L (35-105) 11/10/24 10:56 Creatine Kinase 452 U/L (26-192) H* 11/10/24 10:56 Troponin T Baseline 601 ng/L (0-10) H* 11/10/24 10:56 C-Reactive Protein 3.0 mg/L (0.0-4.9) 11/10/24 10:56 Total Protein 5.9 g/dL (6.6-8.7) L 11/10/24 10:56 Albumin 3.4 g/dL (3.5-5.2) L 11/10/24 10:56 Globulin 2.5 g/dL (1.3-4.6) 11/10/24 10:56 Procalcitonin 0.04 ng/mL (0-0.5) 11/10/24 10:56 Blood Type AB Negative 11/10/24 10:56 Rho(D) Type Rh negative 11/10/24 10:56 Antibody Screen Negative 11/10/24 10:56 All radiology interpretation(s) finalized by discharge EKG Data EKG 1: I personally reviewed and interpreted this EKG as follows: EKG interpretation date: 11/10/24 EKG interpretation time: 10:37 Interpretation: afib rvr hr [address] elevation qrs 149 qtc 359 Computer generated interpretation: Chest X-Ray 11/10/24 10:44 IMPRESSION: 1. No acute findings. 2. Low lung volumes. 3. Right central line in the SVC 4. Endotracheal tube above the peggy 5. NG tube is subdiaphragmatic Critical Care Time Critical Care Time: Critical Care Time: Yes Total Critical Care Time: 45 Attestation: The high probability of a clinically significant, sudden or life threatening deterioration of the patient's cv system(s) required my full and direct attention, intervention and personal management. The critical care time is as shown. This time is in addition to time spent performing any reported procedures but includes the following: [x] Data and vital sign review and interpretation [x] Patient assessment, examination and intervention [x] Documentation [x] Medication orders and management Discharge Plan Discharge Patient Disposition: Admitted As Inpatient Admit Provider: Jose Harp Clinical Impression: Cardiac arrest Condition: Stable Coding Level of Care Code ED Coding Advisor for Kunal Chavez
[2024-11-10] MEDS: sodium chloride 0.9% 1,000 ML 999 ML IV ×2 (11:01→11:48)
[2024-11-10] MEDS: amiodarone 150 MG/100 ML PREMIX 400 MG IV (11:02)
[2024-11-10 11:15] LABS: Basophils # 0.1 10^3/uL (0.0-0.1); Basophils % 0.5 %; Eosinophils # 0.1 10^3/uL (0.0-0.8); Eosinophils % 0.6 %; Hematocrit 47.6 % (36-47); Lymphocytes # 3.5 10^3/uL (0.8-4.8); Lymphocytes % 15.9 %; Mean Corpuscular HGB Conc 31.1 g/dL (30-55); Mean Corpuscular Hemoglobin 28.7 pg (27-33); Mean Corpuscular Volume 92.4 fl (85-98); Mean Platelet Volume 11.8 fL (7.4-10.4); Monocytes # 0.6 10^3/uL (0.2-0.9); Monocytes % 2.9 %; Neutrophils # 16.57 10^3/uL (1.8-7.7); Neutrophils % 76.1 %; Nucleated Red Blood Cells % 0 %; Platelet Count 180 10^3/cmm (157-399); Red Blood Count 5.15 10^6/uL (3.85-5.65); White Blood Count 21.74 10^3/uL (3.29-11.43)
--- NOTE | 2024-11-10 11:25 | CTR_ITS ---
PROCEDURE INFORMATION: Exam: CT Head Without Contrast Exam date and time: 11/10/2024 1:50 PM Age: 84 years old Clinical indication: Altered mental status/memory loss; On vent; Additional info: AMS TECHNIQUE: Imaging protocol: Computed tomography of the head without contrast. Radiation optimization: All CT scans at this facility use at least one of these dose optimization techniques: automated exposure control; mA and/or kV adjustment per patient size (includes targeted exams where dose is matched to clinical indication); or iterative reconstruction. COMPARISON: No relevant prior studies available. RADIATION DOSE METRICS: Total DLP (mGy-cm): 843.38 FINDINGS: Brain: Normal. No hemorrhage. Unremarkable white matter. No mass effect. Cerebral ventricles: Moderate ventriculomegaly. Paranasal sinuses: Visualized sinuses are unremarkable. No fluid levels. Mastoid air cells: Visualized mastoid air cells are well aerated. Bones: Unremarkable. No acute fracture. Soft tissues: Unremarkable. CT/CT head wo con* [id number] IMPRESSION: No acute intracranial abnormality.
--- NOTE | 2024-11-10 11:25 | CTR_ITS ---
PROCEDURE INFORMATION: Exam: CTA Chest With Contrast Exam date and time: 11/10/2024 1:54 PM Age: 84 years old Clinical indication: Shortness of breath; Additional info: SOB TECHNIQUE: Imaging protocol: Computed tomographic angiography of the chest with contrast. Exam focused on the arteries. 3D rendering (Not supervised by radiologist): MIP and/or 3D reconstructed images were created by the technologist. Radiation optimization: All CT scans at this facility use at least one of these dose optimization techniques: automated exposure control; mA and/or kV adjustment per patient size (includes targeted exams where dose is matched to clinical indication); or iterative reconstruction. Contrast material: OMNI 350; Contrast volume: 100 ml; Contrast route: INTRAVENOUS (IV); COMPARISON: CR (CHEST, ) 11/10/2024 10:45 AM RADIATION DOSE METRICS: Total DLP (mGy-cm): 313.06 FINDINGS: Tubes, catheters and devices: Endotracheal tube tip is at the level of peggy. Nasogastric tube distal end below proximal stomach, tip not imaged Pulmonary arteries: Normal. No pulmonary emboli. 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 Limited contrast within the aorta, suboptimal to evaluate for dissection. No aneurysm. Atherosclerotic calcifications in aorta and coronary arteries noted. Lungs: Atelectasis in bilateral lower lobes and right upper lobe posteriorly. Minimal pulmonary edema. Pleural spaces: Small to moderate right pneumothorax, measures 12 mm in AP dimension at mid chest level. No significant pleural effusion. Heart: Cardiomegaly. No pericardial effusion. Lymph nodes: No enlarged lymph nodes. Bones/joints: Acute fracture of right 2nd rib anteriorly, minimally displaced, 3rd rib anteriorly, minimally comminuted and angulated fracture, 4th rib anteriorly angulated, 5th rib anterolaterally and 6th rib anterolaterally. Angulated appearance of the left 2nd through 7th ribs, nondisplaced fracture suspected. Mild superior endplate compression deformity of T1 vertebra [id number] compression deformity of T7 vertebral body. No significant retropulsion. Soft tissues: Soft tissue air in the right upper and mid anterior chest wall within the muscles. CT/CT angio chest PE protcl [id number] IMPRESSION: 1. [id number] right pneumothorax. 2. Acute, minimally displaced fractures of the right 2nd through 4th ribs. Nondisplaced fractures of the right 5th and 6th ribs nondisplaced angulated fractures of left 2nd through 7th ribs 3. Atelectasis in lower lobes and right posterior lung. Cardiomegaly with minimal pulmonary edema 4. Mild compression deformities of T1 and T7 vertebral bodies, possibly chronic fracture. 5. Endotracheal tube tip is at the level of peggy. Repositioning recommended.
[2024-11-10 11:31] LABS: ABG PCO2 35.7 mmHg (35-45); ABG PH Result 7.34 (7.35-7.45); Arterial Blood Gas Hematocrit 47.2 % (37-47); Base Excess ABG -5.8 mmol/L (-2.0-2.0); Blood Gas Allen Test Pos; Blood Gas Operator Identificat glc; Blood Gas Sample Site Radial, right; Blood Gas Sample Type Arterial; Blood Gas Tidal Volume 0.35; HCO3 ABG 19.2 mmol/L (22-26); Oxygen Device VENT; PO2 FiO2 Ratio Arterial Blood 213
[2024-11-10 11:37] LABS: Lactic Sepsis W/Reflex 5.6 mmol/L (0.5-2.2)
[2024-11-10 11:44] LABS: Alanine Aminotransferase 186 U/L (0-33); Albumin Level 3.4 g/dL (3.5-5.2); Alkaline Phosphatase 51 U/L (35-105); Aspartate Amino Transferase 188 U/L (0-32); Blood Urea Nitrogen 19 mg/dL (8-23); Carbon Dioxide 16 mmol/L (22-29); Chloride 102 mmol/L (98-107); Creatinine Clr Calc Pharmacy 38.2259; Globulin 2.5 g/dL (1.3-4.6); Glucose 235 mg/dL (65-115); Magnesium 1.9 mg/dL (1.7-2.3); Osmolality Calculated 294 mOsm/kg (285-295); Sodium 137 mmol/L (136-145); Total Bilirubin 0.7 mg/dL (0.15-1.2); Total Protein 5.9 g/dL (6.6-8.7); Troponin(5th) Baseline 601 ng/L (0-10)
[2024-11-10] MEDS: piperacillin-tazobactam 3.375 GM in sodium chloride 0.9% (plus) 50 ML IV ×2 (11:46→16:28)
[2024-11-10 11:48] LABS: Anion Gap 22.1 (5-19); Potassium 3.1 mmol/L (3.5-5.1)
[2024-11-10] MEDS: VANCOMYCIN ADD-Vantage 1,000 MG in 0.9% NaCl ADD-Vantage 250 ML 250 MG IV (11:51)
--- NOTE | 2024-11-10 12:09 | USR_ITS ---
PROCEDURE INFORMATION: Exam: US Duplex Lower Extremity Veins, Bilateral Exam date and time: 11/10/2024 5:11 PM Age: 84 years old Clinical indication: Swelling (edema) of limb; Lower extremity, bilateral TECHNIQUE: Imaging protocol: Real-time duplex ultrasound of the bilateral extremities with 2-D hines scale, color Doppler flow and spectral waveform analysis including responses to compression and other maneuvers (when performed) with image documentation. Complete exam focused on the lower extremity veins. COMPARISON: No relevant prior studies available. FINDINGS: Right deep veins: Unremarkable. The common femoral, femoral, proximal profunda femoral and popliteal veins are patent without thrombus. Normal Doppler waveforms. Normal compressibility and/or augmentation response. Left deep veins: Unremarkable. The common femoral, femoral, proximal profunda femoral and popliteal veins are patent without thrombus. Normal Doppler waveforms. Normal compressibility and/or augmentation response. Superficial veins: Greater saphenous veins at the saphenofemoral junctions are patent bilaterally without thrombus. Soft tissues: Unremarkable. US/CV venous duplex [facility] [id number] IMPRESSION: No evidence of deep vein thrombosis.
--- NOTE | 2024-11-10 12:09 | USCV_ITS ---
Delisa Plascencia Age: 84 Gender: F : 1940 Exam Date: 11/10/2024 14:33 Ordering Phys: Jose Harp MD Technologist: Marlon Saba [place] [facility] [place]: cardiac arrest, chest pain BP: 134 / 75 HR: 64 Rhythm: Sinus Technical Quality: Adequate MEASUREMENTS (Male / Female) Normal Values 2D ECHO LV Diastolic Diameter PLAX 3.4 cm 4.2 - 5.9 / 3.9 - 5.3 cm IVS Diastolic Thickness 1.1 cm 0.6 - 1.0 / 0.6 - 0.9 cm IVS Systolic Thickness 1.4 cm LVPW Diastolic Thickness 2.0 cm 0.6 - 1.0 / 0.6 - 0.9 cm LVPW Systolic Thickness 1.8 cm LVOT Diameter 1.7 cm LV Ejection Fraction 2D Teich 22.6 % LV Ejection Fraction MOD 4C 28.9 % LV Ejection Fraction MOD 2C 26.6 % LV Ejection Fraction 2C AL 27.9 % LA Diameter 3.3 cm RA Systolic Volume 4C AL 20.7 ml RA Systolic Volume 4C MOD 21.0 ml LA Sys Volume AL 28.1 cm cubed LA Sys Volume Index AL 16.1 cm cubed/m squared Aorta at Sinotubular Diameter 1.7 cm IVC Diameter 1.7 cm M-MODE LA Ao Ratio MM 1.4 AV Cusp Separation MM 1.5 cm DOPPLER AV Peak Velocity 99.0 cm/s LVOT Peak Velocity 69.0 cm/s AV Area Cont Eq vti 1.9 cm squared AV Area Cont Eq pk 1.6 cm squared MV Peak Velocity 97.0 cm/s MV Area PHT 5.1 cm squared Mitral E to A Ratio 0.5 TV Peak Velocity 288.3 cm/s TR Peak Velocity 303.0 cm/s TR Peak Gradient 36.7 mmHg TR Mean Velocity 230.0 cm/s TR Mean Gradient 22.8 mmHg TR Velocity Time Integral 101.4 cm PV Peak Velocity 64.0 cm/s RV Ejection Time 0.2 s FINDINGS Left Ventricle Moderately increased left ventricular cavity size. Severely decreased left ventricular systolic function. There appeared to be mid to distal anterior septal and apical akinesis left ventricular ejection fraction is estimated at 28 %. Grade I/IV diastolic dysfunction (abnormal relaxation filling pattern), normal to mildly elevated filling pressures. Right Ventricle The right ventricle is normal in size and function. Right Atrium The right atrium is normal in size. Left Atrium Moderately increased left atrial size. Mitral Valve Structurally normal mitral valve without significant stenosis or prolapse. There is no mitral regurgitation. Aortic Valve Structurally normal aortic valve without significant sclerosis or stenosis. There is no aortic regurgitation. Tricuspid Valve Structurally normal tricuspid valve without significant stenosis or regurgitation. Pulmonary artery systolic pressure is normal. Pulmonic Valve Structurally normal pulmonic valve without significant stenosis. There is no pulmonic regurgitation. Pericardium Normal pericardium without effusion. Aorta Normal ascending aorta dimension. IVC The inferior vena cava appears normal. CONCLUSIONS Moderately increased left ventricular cavity size. Severely decreased left ventricular systolic function. There appeared to be mid to distal anterior septal and apical akinesis left ventricular ejection fraction is estimated at 28 %. Grade I/IV diastolic dysfunction (abnormal relaxation filling pattern), normal to mildly elevated filling pressures. Moderately increased left atrial size. There is no pericardial effusion. Right atrial pressure is around 10 mm of mercury. Zainab Dudley MD (Electronically Signed) Final Date: 10 November 2024 15:44 S
[2024-11-10 12:35] LABS: INR 1.21 (0.8-1.2)
--- NOTE | 2024-11-10 12:44 | ECG_ITS ---
[employer] Test Date: 2024-11-10 Pat Name: Delisa Plascencia Department: Room: Gender: Female [employer] De[employer]rer: : 1940 Requested By: Yohannes Dennis Order Number: [id number] Reading MD: ANDREW ELIZALDE Measurements Intervals [place] Rate: 56 P: 45 OR: 169 QRS: -22 QRSD: 157 T: -60 QT: 422 QTc: 411 Interpretive Statements SINUS BRADYCARDIA BORDERLINE LEFT AXIS DEVIATION [QRS AXIS < -20] INTRAVENTRICULAR CONDUCTION DELAY [130+ ms QRS DURATION] Compared to ECG 11/10/2024 10:37:04 Intraventricular conduction delay now present Atrial fibrillation no longer present Ventricular premature complex(es) no longer present Aberrant conduction of supraventricular beat(s) no longer present Right bundle-branch block no longer present Myocardial infarct finding no longer present ST (T wave) deviation no longer present Electronically Signed On 11-10-2024 23:53:05 CDT by ANDREW ELIZALDE [email or web address]
[2024-11-10 12:47] LABS: Procalcitonin 0.04 ng/mL (0-0.5)
--- NOTE | 2024-11-10 12:51 | PM.HP ---
Providers/Chief Complaint Admitting Physician: Jose Harp MD Primary Care Provider: GEOVANY Roberts Chief Complaint: chest pain History of Present Illness Delisa Plascencia is a 84 year old female with a past medical history of CKD, history of NSTEMI, osteoporosis, who recently presented to [facility] in [facility] for complaints of chest pain, family was told that her workup was within normal limits and she was discharged home. She was complaining of chest pain, radiating down both arms, into her jaw, shortness of breath, feeling fatigue, malaise, she went home, family checked up on her this morning at about 9 AM. She was not feeling well, family checked up on her again at about 920am- 930 a.m., she was not responsive, EMS was called, took about 5 to 10 minutes for EMS to reach her, on arrival they found her agonal, in cardiac arrest, pulseless electrical activity of the heart, CPR was performed for about 10 to 15 minutes, they did get a pulse in between, but lost a pulse, and resumed CPR, with eventual ROSC with 3 rounds of epi, did did receive ROSC, started on epi drip, in the emergency room ER provider had intubated place in, currently on fentanyl for sedation, she rhythm on evaluation, A-fib with RVR, placed on amiodarone drip, converted to normal sinus rhythm, can repeat EKG does not show shows T wave inversions in anterior lead lead V2, V3, on examination her pupils are pinpoint, nonreactive, she does not withdraw from pain, does not track, 50% FiO2, is off pressors, normotensive, bradycardic, first troponin 601, lactic acid 5.6, creatinine 1.3, discussed goals of care with patient's family for now full code, discussed the possibility of recurrent cardiac arrest episode, discussed the possibility of dialysis, Review of Systems General: Reports: ROS unobtainable due to endotracheal tube Medications/Allergies Home Medications ?Medication ?Instructions ?Recorded ?Confirmed ?Last Taken ?Type lovastatin 40 mg tablet 40 mg PO DAILY 07/26/19 11/10/24 10/21/22 History metoprolol tartrate 25 mg tablet 12.5 mg PO BID 07/26/19 11/10/24 10/22/22 History nitroglycerin 0.4 mg sublingual 0.4 mg sublingual Q5M PRN Chest 07/26/19 11/10/24 Unknown History tablet Pain pantoprazole 40 mg tablet,delayed 40 mg PO BID 07/26/19 11/10/24 10/22/22 History release (Protonix) polyethylene glycol 3350 17 17 gm PO DAILY PRN Constipation 07/26/19 11/10/24 Unknown History gram/dose oral powder (Miralax) ropinirole 4 mg tablet 6 mg PO TID 07/26/19 11/10/24 10/22/22 History aspirin 81 mg tablet,delayed 81 mg PO DAILY 08/24/21 11/10/24 10/22/22 History release gabapentin 100 mg capsule 100 mg PO TID 10/22/22 11/10/24 10/22/22 History potassium chloride 10 mEq 10 meq PO DAILY 10/22/22 11/10/24 10/22/22 History tablet,extended release carbidopa ER 25 mg-levodopa 100 mg 1 tab PO TID 11/10/24 11/10/24 Unknown History tablet,extended release fluorouracil 5 % topical cream 1 applic topical BID 11/10/24 11/10/24 Unknown History isosorbide mononitrate 60 mg 60 mg PO QAM 11/10/24 11/10/24 Unknown History tablet,extended release 24 hr loratadine 10 mg tablet 10 mg PO DAILY 11/10/24 11/10/24 Unknown History mometasone-formoterol HFA 200 2 puff inhalation BID 11/10/24 11/10/24 Unknown History mcg-5 mcg/actuation aerosol inhaler (Dulera) trazodone 100 mg tablet 100 mg PO BEDTIME 11/10/24 11/10/24 Unknown History valsartan 160 1 tab PO DAILY 11/10/24 11/10/24 Unknown History mg-hydrochlorothiazide 12.5 mg tablet Allergies Allergy/AdvReac Type Severity Reaction Status Date / Time morphine Allergy rash Verified 01/13/23 12:56 albuterol sulfate Allergy Unknown Uncoded 02/03/23 13:21 PFSH Acute PFSH: Medical History Parkinson disease Chronic kidney disease Hypertension Family History Other CAD (coronary artery disease) Cancer Chronic kidney disease (CKD) Dementia Diabetes Hyperlipidemia Hypertension Denies family history of Clotting disorder Psychiatric illness Suicide Anesthesia complication Bleeding disorder Family history of premature coronary artery disease Lung disease Stroke Social History Smoking and tobacco/nicotine status: never used tobacco/nicotine Second hand smoke exposure: No Alcohol intake: never Substance/Drug Use: never Lives independently: Yes Household members: none Housing: Apartment Marital status: Vitals/I&O/Wt Last Vital Signs Pulse 56 L 11/10/24 12:45 Resp 16 11/10/24 12:45 BP 127/71 11/10/24 12:45 Pulse Ox 97 11/10/24 12:45 O2 Del Method Mechanical Ventilation 11/10/24 11:49 FiO2 50 11/10/24 11:56 11/09/24 11/10/24 11/10/24 22:59 06:59 14:59 Intake Total 911.217 / 911.217 Balance 911.217 / 911.217 Weight last 48 hrs Weight 72.575 kg Physical Exam Const: COMMON NORMALS: no acute distress and patient oriented x3 OTHER: Currently intubated, sedated with fentanyl Eye: OTHER: Pinpoint, nonreactive to light Lymph: LYMPHATIC: no lymphadenopathy noted Resp: COMMON NORMALS: normal respiratory effort, No retractions, No use of accessory muscles and clear to auscultation bilaterally AUSCULTATION: crackles and wheezes Cardio: COMMON NORMALS: no JVD, regular rate, regular rhythm, S1 normal heart sound present and S2 normal heart sound present RATE: regular rate RHYTHM: regular rhythm HEART SOUNDS: S1 normal heart sound present and S2 normal heart sound present GI: COMMON NORMALS: Normal to inspection, nondistended, normoactive bowel sounds present, Soft to palpation and non-tender Extremity: COMMON NORMALS: no pedal edema Neuro: OTHER: Does not follow neurologic testing Skin: NARRATIVE SKIN EXAM: DP PT pulses, palpable, no mottling, cap refill less than 2 seconds Sepsis examination done 11/10/2024 at 12:30 PM Data 11/10/24 10:56 11/10/24 10:56 Micro: Microbiology 11/10/24 10:56 Blood Culture - Preliminary Blood SPECIMEN COLLECTED 11/10/24 11:01 Blood Culture - Preliminary Blood SPECIMEN COLLECTED A&P Assessment and plan (1) Cardiac arrest: (2) Brain anoxic injury: (3) Chest pain: (4) Atrial fibrillation with RVR: (5) NSTEMI (non-ST elevated myocardial infarction): Plan Cardiac arrest -Patient complains of chest pain - Down for up to 30 minutes, with ambulance arrival in about 5 to 10 minutes, with CPR for 10 to 15 minutes - Initial EKG does show T wave inversions in V2, V3 - Rhythm reported was PEA, with ROSC twice, epi x 3, A-fib with RVR, status post amiodarone, currently in normal sinus rhythm - Baseline troponin 601, 120-minute 1112, with a delta 511 - D-dimer over 20 - Creatinine 1.3 Plan -Obtain records from [facility] - Cardiology consulted - Aspirin, statin - Heparin drip - CT angio chest - Cardiac echo - Venous ultrasound - Full code -On heparin drip Acute hypoxic respiratory failure -Concerns for agonal breathing outside the hospital - Currently intubated, sedated on mechanical ventilation - Minimize FiO2, minimize tidal volume - Monitor respiratory status closely - DuoNeb - CT angiogram of the chest - Will consider Lasix based on clinical progress Concerns for anoxic brain injury - Neurology consulted - CT head Acute kidney injury, will monitor creatinine closely A-fib with RVR, converted to normal sinus rhythm, heparin drip, amiodarone drip NSTEMI - Serial EKGs, serial troponins, telemetry monitoring - Aspirin, Statin - Cardiac echo - Heparin drip - Cardiology consulted Spoke to patient's family, spoke to ER physician, spoke to cardiology, spoke to neurology, family meeting, spoke to nursing staff, spoke to [facility] ER provider - [facility] ER provider/physician, told me that the troponin was 23, delta of 6, did have T wave inversions in V2, V3, PDMP PDMP Reviewed: Not Reviewed Attestations Medical Necessity Statement*: Patient requires hospitalization, inpatient, greater than 2 midnights for cardiac arrest, AXEL, atrial fibrillation, concern for anoxic brain injury, NSTEMI Coding Level of Care Code Critical Care >/= 30 minutes Critical care time (in minutes): 60 The high probability of a clinically significant, sudden or life threatening deterioration, as referenced in this documentation, required my full and direct attention, intervention and personal management. The critical care time shown is in addition to time spent performing any reported separately billable procedures and includes the following: [x] Data and vital sign review and interpretation [x] Patient assessment, examination and intervention [x] Medication orders and management [x] Patient/Family updates as able [x] Care Coordination and Documentation. Diagnoses Cardiac arrest I46.9 Brain anoxic injury G93.1 Chest pain R07.9 Atrial fibrillation with RVR I48.91 NSTEMI (non-ST elevated myocardial infarction) I21.4
[2024-11-10 12:52] LABS: Creatine Phosphokinase 452 U/L (26-192); D Dimer >= 20.00 ug/mLFEU (0-0.59)
[2024-11-10 12:56] LABS: Reflex Lactate Order REFLEX LACTIC ORDERD
--- NOTE | 2024-11-10 13:02 | PC.PHAR ---
Pt unable to verify home medications. Spoke with [facility] at [facility] for current med list. Several meds were dc'd recently and several new orders filled. They received a new order for Isosorbide Mononitrate ER 60 qam[facility]11/10/24 [facility], which has not been picked up yet.
--- NOTE | 2024-11-10 13:03 | PM.CONSULT ---
Providers/Reason For Consult Consulting Physician/Specialty*: Zainab Dudley MD Reason for Consult*: Cardiac arrest Requesting Physician: Dr. Caicedo/Dr. Garcia Attending Physician: Jose Harp MD Primary Care Provider: GEOVANY Roberts History of Present Illness History of Present Illness Delisa Plascencia is a 84 year old female past medical history significant for hypertension hyperlipidemia last seen by her sister at 9 AM, her sister returned at 9:30 AM again and found her to be unconscious with shallow breathing 911 was called, she was noted to have pulseless electrical activity 10 minutes of CPR was performed while transporting patient again had another episode of pulseless electrical activity CPR was performed she achieved ROSC, upon arrival in the ED she remains unresponsive, she was intubated and reassessed twelve-lead EKG. Initial EKG was consistent with right bundle branch block and atrial fibrillation with rapid ventricular response. Amiodarone was given which converted her to sinus rhythm. Repeated sinus EKG x 2 showed [address] elevation however rest of leads did not show significant ST depression or elevation. I had detailed discussion in the ER with all family members including her granddaughters who found to medical field, given patient unresponsiveness and very likelihood of widespread anoxic brain damage neurology was consulted, Dr. Sarahi Parham saw the patient in the ICU with the opinion of possible widespread anoxic brain injury as well. Patient condition remained guarded, she does not have a spontaneous breathing or purposeful movement. Review of Systems General: Reports: ROS unobtainable due to endotracheal tube and ROS unobtainable due to mental status Medications/Allergies Home Medications ?Medication ?Instructions ?Recorded ?Confirmed ?Last Taken ?Type lovastatin 40 mg tablet 40 mg PO DAILY 07/26/19 11/10/24 10/21/22 History metoprolol tartrate 25 mg tablet 12.5 mg PO BID 07/26/19 11/10/24 10/22/22 History nitroglycerin 0.4 mg sublingual 0.4 mg sublingual Q5M PRN Chest 07/26/19 11/10/24 Unknown History tablet Pain pantoprazole 40 mg tablet,delayed 40 mg PO BID 07/26/19 11/10/24 10/22/22 History release (Protonix) polyethylene glycol 3350 17 17 gm PO DAILY PRN Constipation 07/26/19 11/10/24 Unknown History gram/dose oral powder (Miralax) ropinirole 4 mg tablet 6 mg PO TID 07/26/19 11/10/24 10/22/22 History aspirin 81 mg tablet,delayed 81 mg PO DAILY 08/24/21 11/10/24 10/22/22 History release gabapentin 100 mg capsule 100 mg PO TID 10/22/22 11/10/24 10/22/22 History potassium chloride 10 mEq 10 meq PO DAILY 10/22/22 11/10/24 10/22/22 History tablet,extended release carbidopa ER 25 mg-levodopa 100 mg 1 tab PO TID 11/10/24 11/10/24 Unknown History tablet,extended release fluorouracil 5 % topical cream 1 applic topical BID 11/10/24 11/10/24 Unknown History isosorbide mononitrate 60 mg 60 mg PO QAM 11/10/24 11/10/24 Unknown History tablet,extended release 24 hr loratadine 10 mg tablet 10 mg PO DAILY 11/10/24 11/10/24 Unknown History mometasone-formoterol HFA 200 2 puff inhalation BID 11/10/24 11/10/24 Unknown History mcg-5 mcg/actuation aerosol inhaler (Dulera) trazodone 100 mg tablet 100 mg PO BEDTIME 11/10/24 11/10/24 Unknown History valsartan 160 1 tab PO DAILY 11/10/24 11/10/24 Unknown History mg-hydrochlorothiazide 12.5 mg tablet Allergies Allergy/AdvReac Type Severity Reaction Status Date / Time morphine Allergy rash Verified 01/13/23 12:56 albuterol sulfate Allergy Unknown Uncoded 02/03/23 13:21 Current Medications Generic Name Dose Route Start Last Admin Trade Name Freq PRN Reason Stop Dose Admin Fentanyl 1,000 mcg in 100 mls @ 0 mls/hr 11/10/24 10:45 11/10/24 11:20 Sublimaze IV 50 mcg/hr .Q0M DYLLAN 5 mls/hr Protocol Titration Per Protocol Norepinephrine Bitartrate 4 mg in 250 mls @ 0 mls/hr 11/10/24 10:45 11/10/24 11:48 Levophed IV 0 mcg/min .Q0M DYLLAN 0 mls/hr Protocol Titration Per Protocol Amiodarone HCl/Dextrose 360 mg in 200 mls @ 0 mls/hr 11/10/24 10:50 11/10/24 11:02 Nexterone IV 1 mg/min .Q0M DYLLAN 33.33 mls/hr Protocol Administration Per Protocol PFSH Acute PFSH: Medical History Parkinson disease Chronic kidney disease Hypertension Family History Other CAD (coronary artery disease) Cancer Chronic kidney disease (CKD) Dementia Diabetes Hyperlipidemia Hypertension Denies family history of Clotting disorder Psychiatric illness Suicide Anesthesia complication Bleeding disorder Family history of premature coronary artery disease Lung disease Stroke Social History Smoking and tobacco/nicotine status: never used tobacco/nicotine Second hand smoke exposure: No Alcohol intake: never Substance/Drug Use: never Lives independently: Yes Household members: none Housing: Apartment Marital status: Dietary Habits: Current diet type/program: regular Caffeine: Yes Caffeine intake frequency: carbonated beverages and tea Vitals/I&O/Wt Last Vital Signs Pulse 56 L 11/10/24 12:45 Resp 16 11/10/24 12:45 BP 127/71 11/10/24 12:45 Pulse Ox 97 11/10/24 12:45 O2 Del Method Mechanical Ventilation 11/10/24 11:49 FiO2 50 11/10/24 11:56 11/09/24 11/10/24 11/10/24 22:59 06:59 14:59 Intake Total 911.217 / 911.217 Balance 911.217 / 911.217 Weight last 48 hrs Weight 160 lb Physical Exam Const: OTHER: GENERAL: Patient is unresponsive to verbal and deep stimulus HEART: Regular S1 and S2. No murmur, rub or gallop. LUNGS: Clear to auscultate bilaterally. CENTRAL NERVOUS SYSTEM: Unresponsive EXTREMITIES: Lower extremities with out edema bilaterally. Data 11/10/24 10:56 11/10/24 10:56 Micro: Microbiology 11/10/24 10:56 Blood Culture - Preliminary Blood SPECIMEN COLLECTED 11/10/24 11:01 Blood Culture - Preliminary Blood SPECIMEN COLLECTED A&P Assessment and plan (1) Brain anoxic injury: (2) Cardiac arrest: (3) NSTEMI (non-ST elevated myocardial infarction): (4) Atrial fibrillation with RVR: Plan Patient is normotensive in sinus rhythm she is status post cardiac arrest with high suspicion of widespread anoxic brain injury. She does not have purposeful movement or spontaneous breathing. Since she is not in cardiogenic shock or having arrhythmia and because of the fact we have very high suspicion of anoxic brain damage, we would like to treat patient medically for now and will not take her to the [facility]. We will consider taking her to [facility] if we have any evidence of meaningful neurological recovery. We will continue to monitor and round on her along with medicine and neuro colleagues Continue aspirin statin If okay with neurology start patient on heparin as per ACS protocol Hold beta-carrillo to avoid hypotension For hypertension can use nitro drip Possible repeat CT scan in the morning to assess anoxia Further plan will be devised as per progress of the patient I have discussed in detail my plan with family members they understood completely and all are in agreement. PDMP PDMP Reviewed: Not Reviewed Consult Attestations Medical Necessity Statement: I am expecting her stay to cross more than 2 midnights Coding Level of Care Code Acute Code for [facility] Diagnoses Brain anoxic injury G93.1 Cardiac arrest I46.9 NSTEMI (non-ST elevated myocardial infarction) I21.4 Atrial fibrillation with RVR I48.91
[2024-11-10 13:12] LABS: Troponin 5 2HR 1112 ng/L (0-10); Troponin 5 2HR Delta 511 ABS# (0-10)
[2024-11-10 13:13] LABS: Bilirubin Urine Negative (Negative); Blood Urine 2+ (Negative); Glucose Urine UA Trace (Normal); Ketones Urine Negative (Negative); Leukocyte Esterase Urine Negative (Negative); Nitrate Urine Negative (Negative); Protein Urine 2+ (Negative); Specific Gravity, Urine 1.013 (1.005-1.030); Urine Appearance Clear (CLEAR); Urine Color Yellow (Yellow); Urobilinogen Urine 0.2 mg/dL (Negative)
[2024-11-10 13:19] LABS: Add Urine Microscopic? YES; Bacteria Urine None Seen /hpf; Hyaline Casts Urine 17.37 /lpf
[2024-11-10 13:46] LABS: UA Slide Review UA Slide Review Perf
[2024-11-10] MEDS: iohexol 350 mg/mL 500 mL Btl (per mL) IV (14:01)
--- NOTE | 2024-11-10 14:24 | PC.NURSE ---
Arrived from ED, transferred to bed with lift sheet, on ventilator
[2024-11-10] MEDS: heparin drip 25,000 UNIT/500 ML PREMIX 21 UNIT IV (14:45)
[2024-11-10] MEDS: heparin 5,000 unit/mL INJ 1 mL IVP (14:48)
[2024-11-10 15:02] LABS: Lactic Acid level (Lactate) 2.7 mmol/L (0.5-2.2)
[2024-11-10 15:07] LABS: Chol HDL Ratio 4.08 mg/dL (0.0-4.40); Cholesterol 151 mg/dL (0-200); HDL Cholesterol 37 mg/dL (60-100); LDL Cholesterol Calculated 95 mg/dL (50-129); LDL HDL Ratio 2.57 RATIO (0.00-3.22); Triglycerides 97 mg/dL (0-150)
--- NOTE | 2024-11-10 15:22 | PC.NURSE ---
Dr. Dumont came to bedside placed jeffrey
--- NOTE | 2024-11-10 15:26 | XRR_ITS ---
PROCEDURE INFORMATION: Exam: XR Chest Exam date and time: 11/10/2024 4:06 PM Age: 84 years old Clinical indication: Device placement; Chest tube; Post RT thoravent placement; Additional info: Thoracic vent placement TECHNIQUE: Imaging protocol: Radiologic exam of the chest. Views: 1 view. COMPARISON: CT angio chest PE protcl [id number] 11/10/2024 1:54 PM FINDINGS: Tubes, catheters and devices: Endotracheal tube is 11.5 mm above the peggy. This tube should be retracted at least 2 cm. NG tube extends into the stomach. Right central line is in the SVC Lungs: Unremarkable. No consolidation. Pleural spaces: Unremarkable. No pleural effusion. No pneumothorax. Heart/Mediastinum: Unremarkable. No cardiomegaly. Bones/joints: Unremarkable. XR/XR chest 1V portable [id number] IMPRESSION: 1. No acute findings. 2. Right central line in the SVC 3. Endotracheal tube is just above the peggy 4. NG tube is in the stomach
--- NOTE | 2024-11-10 15:26 | PC.NURSE ---
intermittent grade 1 leak to thoracic vent [facility]
[2024-11-10] MEDS: aspirin 81 mg EC Tablet PO (15:32)
[2024-11-10] MEDS: pantoprazole 40 mg SDV IVP (15:32)
[2024-11-10 15:48] LABS: Thyroid Stimulating Hormone 1.96 uIU/mL (0.27-4.20)
--- NOTE | 2024-11-10 16:23 | PM.CONSULT ---
Providers/Reason For Consult Consulting Physician/Specialty*: Prasad Mcclain MD neurology and epilepsy Reason for Consult*: Cardiopulmonary arrest followed by stupor like state 11/10/2024 Attending Physician: Jose Harp MD Primary Care Provider: GEOVANY Roberts History of Present Illness History of Present Illness Delisa Plascencia is a 84 year old female with a history of atrial fibrillation with rapid ventricular response, remote mild myocardial infarction, Parkinson disease, osteoporosis, and hypertension. According to the patient's family, around 9 AM on 11/10/2024 the patient was awake and talking. When the family member checked on the patient at 9:30 AM on 11/10/2024 the patient was unresponsive and was not breathing and the family member could not detect a pulse. The family member contacted EMS and according to the family EMS arrived approximately 5 minutes later at 9:35 AM and began CPR. The family stated that CPR was performed for approximately 10 minutes with return of spontaneous circulation (ROSC) at approximately 9:45 AM on 11/10/2024. While the patient was preparing for transport to the emergency department the patient was reported to again experience loss of cardiac rhythm and CPR was resumed with return of spontaneous circulation (ROSC). The family member stated she is not sure how long it took to get a return of ROSC during the second course of CPR. The patient remained unresponsive despite return of spontaneous circulation when the patient arrived at [facility] emergency department on 11/10/2024. Patient intubated and placed on ventilator. The patient was evaluated by cardiology with consideration for to take patient to the [facility] to address recent non-ST segment elevation myocardial infarction reported on EKG performed on 11/10/2024 but the bursar recommended neurological evaluation since the patient was unresponsive in a stupor/comatose state. Neurology consult was obtained on 11/10/2024. Upon neurological assessment NIH stroke score = 30 (level consciousness =3, answer questions= 2, follow commands =2, Best gaze =2, motor left upper extremity =4, right upper extremity =4, left lower extremity =4, right lower extremity =4, painful stimulation no movement =2, speech =3) Metabolic lab for CBC, comprehensive metabolic panel and cardiac enzymes revealed elevated labs as follows: WBC 21.74, creatinine 1.3. Glucose 235. AST 188. ALT 166. CPK 452. Troponins 601. Lactic acid 5.[address] angiogram 11/10/2024 1. [id number] right pneumothorax. 2. Acute, minimally displaced fractures of the right 2nd through 4th ribs. Nondisplaced fractures of the right 5th and 6th ribs nondisplaced angulated fractures of left 2nd through 7th ribs 3. Atelectasis in lower lobes and right posterior lung. Cardiomegaly with minimal pulmonary edema Chest tube was placed 11/10/2024. Noncontrast head CT 11/10/2024 reported no acute findings. According to the patient's family the patient does not always take her Parkinson medicine as prescribed. The family states the patient has been known to take the Parkinson medication at a lower dose and less frequently than prescribed by her physician. The family stated the patient was evaluated at a local emergency room on 11/09/2024 secondary to complaints of chest pain, jaw pain, arm pain (specific arm unknown by the family members that were providing the patient's history on 11/10/2024 around 4 PM) and elevated blood pressure with systolic blood pressure greater than 200. The family member stated the patient's elevated blood pressure was treated and the patient was released. The family stated that when the patient returned home she was reporting chest pain and took extra blood pressure medicine and pain medication the night of 11/09/2024. I spoke with the family, Dr. Harp the hospitalist, and Dr. Dudley, bursar regarding the patient's prognosis which is guarded/poor. I agreed with cardiology and the hospitalist to hold off on doing any invasive treatment for the patient's acute non-ST segment elevation myocardial infarction in the family also agreed as well due to the patient's neurological condition with NIH stroke score =30. Also spoke with Dr. Harp regarding obtaining a carotid duplex study since CT angiogram of the head and neck was not performed and there is concern regarding the patient's elevated creatinine and elevated creatinine kinase and concerns for worsening renal issues. Drug allergies: Morphine which resulted in a rash Albuterol sulfate type reaction not indicated Current medications: Aspirin 81 mg p.o. daily Sinemet 1 tablet p.o. 3 times daily Neurontin 100 mg p.o. 3 times daily Isosorbide mononitrate 60 mg p.o. daily Loratadine 10 mg p.o. daily Lovastatin 40 mg p.o. daily Metoprolol 12.5 mg p.o. twice daily Dulera 2 puffs twice daily Sublingual nitroglycerin 0.4 mg sublingual every 5 minutes as instructed as needed for chest pain Protonix delayed release 40 mg p.o. twice daily MiraLAX 17 g p.o. daily, as needed constipation Potassium chloride 10 mEq p.o. daily Ropinirole 6 mg p.o. 3 times daily Trazodone 100 mg p.o. nightly Valsartan/hydrochlorothiazide 1 p.o. daily Past medical history: Non-ST elevation myocardial infarction Atrial fibrillation with rapid ventricular response Osteoporosis Parkinson disease Lumbar radiculopathy Lumbar stenosis with neurogenic claudication Acute bacterial sinusitis Habits: None Family history: CAD (coronary artery disease) Cancer Chronic kidney disease (CKD) Dementia Diabetes Hyperlipidemia Hypertension Review of Systems General: Reports: ROS unobtainable due to endotracheal tube and ROS unobtainable due to medical condition Medications/Allergies Home Medications ?Medication ?Instructions ?Recorded ?Confirmed ?Last Taken ?Type lovastatin 40 mg tablet 40 mg PO DAILY 07/26/19 11/10/24 10/21/22 History metoprolol tartrate 25 mg tablet 12.5 mg PO BID 07/26/19 11/10/24 10/22/22 History nitroglycerin 0.4 mg sublingual 0.4 mg sublingual Q5M PRN Chest 07/26/19 11/10/24 Unknown History tablet Pain pantoprazole 40 mg tablet,delayed 40 mg PO BID 07/26/19 11/10/24 10/22/22 History release (Protonix) polyethylene glycol 3350 17 17 gm PO DAILY PRN Constipation 07/26/19 11/10/24 Unknown History gram/dose oral powder (Miralax) ropinirole 4 mg tablet 6 mg PO TID 07/26/19 11/10/24 10/22/22 History aspirin 81 mg tablet,delayed 81 mg PO DAILY 08/24/21 11/10/24 10/22/22 History release gabapentin 100 mg capsule 100 mg PO TID 10/22/22 11/10/24 10/22/22 History potassium chloride 10 mEq 10 meq PO DAILY 10/22/22 11/10/24 10/22/22 History tablet,extended release carbidopa ER 25 mg-levodopa 100 mg 1 tab PO TID 11/10/24 11/10/24 Unknown History tablet,extended release fluorouracil 5 % topical cream 1 applic topical BID 11/10/24 11/10/24 Unknown History isosorbide mononitrate 60 mg 60 mg PO QAM 11/10/24 11/10/24 Unknown History tablet,extended release 24 hr loratadine 10 mg tablet 10 mg PO DAILY 11/10/24 11/10/24 Unknown History mometasone-formoterol HFA 200 2 puff inhalation BID 11/10/24 11/10/24 Unknown History mcg-5 mcg/actuation aerosol inhaler (Dulera) trazodone 100 mg tablet 100 mg PO BEDTIME 11/10/24 11/10/24 Unknown History valsartan 160 1 tab PO DAILY 11/10/24 11/10/24 Unknown History mg-hydrochlorothiazide 12.5 mg tablet Allergies Allergy/AdvReac Type Severity Reaction Status Date / Time morphine Allergy rash Verified 01/13/23 12:56 albuterol sulfate Allergy Unknown Uncoded 02/03/23 13:21 Current Medications Generic Name Dose Route Start Last Admin Trade Name Freq PRN Reason Stop Dose Admin Fentanyl 1,000 mcg in 100 mls @ 0 mls/hr 11/10/24 10:45 11/10/24 11:20 Sublimaze IV 50 mcg/hr .Q0M DYLLAN 5 mls/hr Protocol Titration Per Protocol Norepinephrine Bitartrate 4 mg in 250 mls @ 0 mls/hr 11/10/24 10:45 11/10/24 11:48 Levophed IV 0 mcg/min .Q0M DYLLAN 0 mls/hr Protocol Titration Per Protocol Amiodarone HCl/Dextrose 360 mg in 200 mls @ 0 mls/hr 11/10/24 10:50 11/10/24 11:02 Nexterone IV 1 mg/min .Q0M DYLLAN 33.33 mls/hr Protocol Administration Per Protocol Heparin Sodium/Sodium Chloride 25,000 unit in 500 mls @ 0 mls/hr 11/10/24 12:15 11/10/24 14:45 Heparin Drip IV 14.47 unit/kg/hr CONT DYLLAN 21 mls/hr Protocol Administration Per Protocol Pantoprazole Sodium 40 mg 11/10/24 15:00 11/10/24 15:32 Pantoprazole 40 Mg Sdv IVP 40 mg Q24H DYLLAN Administration PFSH Acute PFSH: Medical History Parkinson disease Chronic kidney disease Hypertension Family History Other CAD (coronary artery disease) Cancer Chronic kidney disease (CKD) Dementia Diabetes Hyperlipidemia Hypertension Denies family history of Clotting disorder Psychiatric illness Suicide Anesthesia complication Bleeding disorder Family history of premature coronary artery disease Lung disease Stroke Social History Smoking and tobacco/nicotine status: never used tobacco/nicotine Second hand smoke exposure: No Alcohol intake: never Substance/Drug Use: never Lives independently: Yes Household members: none Housing: Apartment Marital status: Vitals/I&O/Wt Last Vital Signs Pulse 64 11/10/24 15:00 Resp 16 11/10/24 15:00 BP 138/86 11/10/24 15:00 Pulse Ox 96 11/10/24 15:22 O2 Del Method Mechanical Ventilation 11/10/24 15:22 FiO2 40 11/10/24 15:22 11/10/24 11/10/24 11/10/24 06:59 14:59 22:59 Intake Total 2211.217 / 2211.217 Balance 2211.217 / 2211.217 Weight last 48 hrs Weight 160 lb Physical Exam Narrative: Upon neurological assessment NIH stroke score = 30 (level consciousness =3, answer questions= 2, follow commands =2, Best gaze =2, motor left upper extremity =4, right upper extremity =4, left lower extremity =4, right lower extremity =4, painful stimulation no movement =2, speech =3) Metabolic lab for CBC, comprehensive metabolic panel and cardiac enzymes revealed elevated labs as follows: WBC 21.74, creatinine 1.3. Glucose 235. AST 188. ALT 166. CPK 452. Troponins 601. Lactic acid 5.6 The patient is stuporous and intubated. Head atraumatic. Neck supple. Cranial nerves II through XII revealed pupils at 3 mm. Is difficult to determine if the pupils are reactive to light. There are no corneal reflexes. Face revealed no obvious facial weakness but the patient is intubated with and difficult to determine if there is any facial weakness. Patient diet open eyes spontaneously but not purposefully suggestive of possible diencephalon response without obvious cortical response. Patient is not tracking and there is no voluntary movement of her eyes. Patient's body displays decerebrate posture. There is no spasticity. Plantar responses flexor bilaterally. There is no clonus. Sensory examination revealed no response to painful stimuli. At times the patient will display spontaneous flexion of her feet when she spontaneously open her eyes and there was some intermittent movement of her tongue all consistent with brainstem spinal reflex response below the level of the red nucleus or midbrain area and possible some diencephalon response without obvious cortical brain response. Data 11/10/24 10:56 11/10/24 10:56 Micro: Microbiology 11/10/24 10:55 Gram Stain - Final Sputum - Endotracheal Tube Aspirate 11/10/24 10:56 Blood Culture - Preliminary Blood SPECIMEN COLLECTED 11/10/24 11:01 Blood Culture - Preliminary Blood SPECIMEN COLLECTED A&P Assessment and plan (1) Brain anoxic injury: Impression: 1. Brain anoxic injury following cardiopulmonary arrest on 11/10/2024 possibility of brainstem stroke cannot be excluded 2. The family who were at the patient's bedside ICU bed #10 were informed that the patient's neurological condition is guarded/poor Plan: 1. Recommend obtaining carotid duplex study to assess for carotid or vertebral artery stenosis/occlusion. Note: Due to the patient's elevated creatinine, recent myocardial infarction with elevated troponin levels and elevated CPK, there was concerns about worsening the patient's renal functions and therefore CT angiogram of the head and neck was not performed. 2. Agree with current treatment plan 3. Monitor for any worsening or improvement in the patient's neurological condition PDMP PDMP Reviewed: Not Reviewed Consult Attestations Medical Necessity Statement: The patient was evaluated by neurology for stupor and to assess neurological condition regarding prognosis Coding Level of Care Code 54602 Diagnoses Brain anoxic injury G93.1
--- NOTE | 2024-11-10 16:44 | ECG_ITS ---
[facility] Test Date: 2024-11-10 Pat Name: Delisa Plascencia Department: Room: ICU10 Gender: Female Education Diagnostician: : 1940 Requested By: Yohannes Dennis Order Number: [id number] Reading MD: ANDREW ELIZALDE Measurements Intervals [place] Rate: 62 P: -75 AK: 153 QRS: -25 QRSD: 134 T: -10 QT: 437 QTc: 447 Interpretive Statements ECTOPIC ATRIAL RHYTHM RIGHT BUNDLE BRANCH BLOCK [120+ ms QRS DURATION, UPRIGHT V1, 40+ ms S IN I/aVL/V4/V5/V6] INFERIOR MYOCARDIAL INFARCTION , PROBABLY OLD [40+ ms Q WAVE AND/OR ST/T ABNORMALITY IN II/aVF] ANTEROSEPTAL MYOCARDIAL INFARCTION , PROBABLY RECENT [40+ ms Q WAVE IN V1-V4] ACUTE [place] Compared to ECG 11/10/2024 11:55:18 Ectopic atrial rhythm now present Right bundle-branch block now present Electronically Signed On 11-10-2024 23:53:18 CDT by ANDREW ELIZALDE [email or web address]
[2024-11-10 17:43] LABS: Troponin 5 6HR 2632 ng/L (0-10); Troponin 5 6HR Delta 2031 ng/L (0-12)
--- NOTE | 2024-11-10 17:44 | PC.NURSE ---
3 rings removed and given to daughter Jordy Romero
[2024-11-10 17:53] LABS: ABG PCO2 31.2 mmHg (35-45); ABG PH Result 7.38 (7.35-7.45); Alveolar-Arterial Oxygen Gradi 19.8 mmHg (5-10); Arterial Blood Gas Hematocrit 47.3 % (37-47); Base Excess ABG -5.3 mmol/L (-2.0-2.0); Blood Gas Allen Test Pos; Blood Gas Operator Identificat GD; Blood Gas Sample Site Radial, right; Blood Gas Sample Type Arterial; Blood Gas Tidal Volume 0.35; Carboxyhemoglobin 0.7 %THgb (0.4-20.1); HCO3 ABG 18.6 mmol/L (22-26); HGB O2 Sat 96.9 % (95-100); Oxygen Device VENT; Oxygen Saturation ABG 97.6; PO2 ABG 89.5 mmHg (80.0-100.0); PO2 FiO2 Ratio Arterial Blood 223; Total Hemoglobin 15.4 g/dL (12-16)
--- NOTE | 2024-11-10 18:28 | PM.CCNAC ---
Critical Care Event Note The high probability of a clinically significant, sudden or life threatening deterioration of the patient's [] system(s) required my full and direct attention, intervention and personal management. The critical care time is as shown. This time is in addition to time spent performing any reported procedures but includes the following: [x] Data and vital sign review and interpretation [x] Patient assessment, examination and intervention [x] Documentation [x] Medication orders and management Critical Care Time Code activated: Yes Critical Care Time (min): 35 Additional information about critical care time: - Nursing staff reported to me at about 6:05 PM Delisa was having diffuse shaking - Concern for anoxic brain injury, concerns for anoxic brain injury and due to seizures - Orders placed for 1 g IV Keppra, seizure precautions - Nursing staff called me at 610pm no pulse, agonal breathing, no blood pressure, has electrical activity, no shockable rhythm, start CPR, [facility] called - Arrived on [facility] at the roughly 6:11 PM - CPR had been started - Patient received CPR, epi -patient had 8 rounds of CPR - At each pulse check no pulse, pulseless electrical activity the heart - No shockable rhythm - Orders placed for epi pushes, bicarb push - Start Levophed -Call Dr. Ferguson, Dr. Avelar arrived -Patient appears mottled up to the level of the abdomen - After roughly 16 minutes of CPR - Reviewed her ABG, no significant hyperkalemia - She has equal breath sounds bilaterally, no difficulty bagging - Discussed with Co. team, Dr. Avelar, patient's poor outcome, concern for anoxic brain injury, NSTEMI, now with new onset seizures, now with [facility] - Dr. Dudley had spoken to patient's daughter about goals of care, daughter wanted, to be comfortable, stop CPR and aggressive interventions - Dr. Dudley came back to the room, reported family wants life-sustaining measures to be stopped, stop CPR - At this point patient had PEA, no pulse, she is not breathing on her own, she is mottled up around the abdomen, pupils are fixed nonreactive, she does not withdraw from pain, she does have fasciculations around her mouth, no spontaneous chest rise, - Start comfort care measures - She has bilateral rib fractures, cardiac arrest episode x 2, seizures, will place comfort care orders to ensure no suffering Coding Level of Care Code Acute Code for Chg Fwd
--- NOTE | 2024-11-10 18:35 | P.DES_ITS ---
Discharge Providers DDS Date of Admission: 11/10/24 12:19 Date Summary Completed: 11/11/24 Attending Provider at Admission: Jose Harp MD Attending Provider at Discharge: Jose Harp MD Primary Care Provider: GEOVANY Roberts Diagnoses Hospital Diagnoses (1) Brain anoxic injury: (2) Cardiac arrest: (3) NSTEMI (non-ST elevated myocardial infarction): (4) Atrial fibrillation with RVR: Reason for Visit Reason for Visit chest pain Summary Summary Summary: Delisa Plascencia is a 84 year old female with a past medical history of CKD, history of NSTEMI, osteoporosis, who recently presented to [facility] in [facility] for complaints of chest pain, family was told that her workup was within normal limits and she was discharged home. She was complaining of chest pain, radiating down both arms, into her jaw, shortness of breath, feeling fatigue, malaise, she went home, family checked up on her this morning at about 9 AM. She was not feeling well, family checked up on her again at about 920am- 930 a.m., she was not responsive, EMS was called, took about 5 to 10 minutes for EMS to reach her, on arrival they found her agonal, in cardiac arrest, pulseless electrical activity of the heart, CPR was performed for about 10 to 15 minutes, they did get a pulse in between, but lost a pulse, and resumed CPR, with eventual ROSC with 3 rounds of epi, did did receive ROSC, started on epi drip, in the emergency room ER provider had intubated place in, currently on fentanyl for sedation, she rhythm on evaluation, A-fib with RVR, placed on amiodarone drip, converted to normal sinus rhythm, can repeat EKG does not show shows T wave inversions in anterior lead lead V2, V3, on examination her pupils are pinpoint, nonreactive, she does not withdraw from pain, does not track, 50% FiO2, is off pressors, normotensive, bradycardic, first troponin 601, lactic acid 5.6, creatinine 1.3, discussed goals of care with patient's family for now full code, discussed the possibility of recurrent cardiac arrest episode, discussed the possibility of dialysis, Cardiac arrest -Patient complains of chest pain - Down for up to 30 minutes, with ambulance arrival in about 5 to 10 minutes, with CPR for 10 to 15 minutes - Initial EKG does show T wave inversions in V2, V3 - Rhythm reported was PEA, with ROSC twice, epi x 3, A-fib with RVR, status post amiodarone, currently in normal sinus rhythm - Baseline troponin 601, 120-minute 1112, with a delta 511 - D-dimer over 20 - Creatinine 1.3 Plan -Obtain records from [facility] - Cardiology consulted - Aspirin, statin - Heparin drip - CT angio chest - Cardiac echo - Venous ultrasound - Full code -On heparin drip Acute hypoxic respiratory failure -Concerns for agonal breathing outside the hospital - Currently intubated, sedated on mechanical ventilation - Minimize FiO2, minimize tidal volume - Monitor respiratory status closely - DuoNeb - CT angiogram of the chest - Will consider Lasix based on clinical progress Concerns for anoxic brain injury - Neurology consulted - CT head Acute kidney injury, will monitor creatinine closely A-fib with RVR, converted to normal sinus rhythm, heparin drip, amiodarone drip NSTEMI - Serial EKGs, serial troponins, telemetry monitoring - Aspirin, Statin - Cardiac echo - Heparin drip - Cardiology consulted Spoke to patient's family, spoke to ER physician, spoke to cardiology, spoke to neurology, family meeting, spoke to nursing staff, spoke to [facility] ER provider - [facility] ER provider/physician, told me that the troponin was 23, delta of 6, did have T wave inversions in V2, V3, CT/CT angio chest PE protcl [id number] IMPRESSION: 1. [id number] right pneumothorax. 2. Acute, minimally displaced fractures of the right 2nd through 4th ribs. Nondisplaced fractures of the right 5th and 6th ribs nondisplaced angulated fractures of left 2nd through 7th ribs 3. Atelectasis in lower lobes and right posterior lung. Cardiomegaly with minimal pulmonary edema 4. Mild compression deformities of T1 and T7 vertebral bodies, possibly chronic fracture. 5. Endotracheal tube tip is at the level of peggy. Repositioning recommended. - Discussed with family, patient has evidence of small to moderate right pneumothorax, currently intubated on mechanical ventilation - Discussed with family, moderate pneumo thorax 12 mm, with positive pressure ventilation, high risk of expansion, high risk of cardiac arrest, high risk of morbidity and mortality - Discussed risk and benefits of Thora vent placement/chest tube placement, patient's daughters voiced understanding, all consents are, agreed to proceed with Thora vent placement - Spoke to ER provider, Dr. Caicedo, will place Thora vent - Discussed also with family multiple rib fractures likely associated with CPR, minimally displaced 2nd through 4th rib fractures, however does have angulated fractures of 2nd through 7th rib, - She was examined, no significant evidence of flail chest - Discussed with cardiology echocardiogram results - S status post successful placement of right chest Thora vent by ER provider, placed to suction CONCLUSIONS Moderately increased left ventricular cavity size. Severely decreased left ventricular systolic function. There appeared to be mid to distal anterior septal and apical akinesis left ventricular ejection fraction is estimated at 28 %. Grade I/IV diastolic dysfunction (abnormal relaxation filling pattern), normal to mildly elevated filling pressures. Moderately increased left atrial size. There is no pericardial effusion. Right atrial pressure is around 10 mm of mercury. - I spoke to [facility] ER provider, he had told me that back in July 2024 she had a echocardiogram done with a EF of 55%, but awaiting on official records - Spoke to cardiology, Dr. Avelar, given diminished ejection fraction of 20%, evidence of wall motion abnormalities cardiology is concerning cardiac catheterization but this will depend on patient's neurologic status - During my last examination, pupils were pinpoint, she does not withdraw from pain, no response to sternal rub, does not localize pain, has a weak cough reflex, she is on fentanyl - Spoke to neurology to assess patient's neurologic status to help guide us in how to aggressively manage patient - Dr. Avelar will also speak to patient's family -Neurology evaluated patient, concerns for brain anoxic injury, no coronary eff ects, decerebrate posturing, does not withdraw from pain, does not localize pain, -After discussion with neurology, and cardiology, decision was made not to pursue coronary angiography as there is concerns for anoxic brain injury, this was discussed in detail with patient's family, discussed risk and benefits, they voiced understanding, all questions - Nursing staff reported to me at about 6:05 PM Delisa was having diffuse shaking, concerns for seizures associate with anoxic brain injury - Concern for anoxic brain injury, concerns for anoxic brain injury and seizures, indicating poor prognosis - Orders placed for 1 g IV Keppra, seizure precautions - Nursing staff called me at 610pm no pulse, agonal breathing, no blood pressure, has electrical activity, no shockable rhythm, start CPR, [facility] called - Arrived on [facility] at the roughly 6:11 PM - CPR had been started - Patient received CPR, epi -patient had 8 rounds of CPR - At each pulse check no pulse, pulseless electrical activity the heart - No shockable rhythm - Orders placed for epi pushes, bicarb push - Start Levophed -Call Dr. Ferguson, Dr. Avelar arrived -Patient appears mottled up to the level of the abdomen - After roughly 16 minutes of CPR - Reviewed her ABG, no significant hyperkalemia - She has equal breath sounds bilaterally, no difficulty bagging - Discussed with Code team, Dr. Avelar, patient's poor outcome, concern for anoxic brain injury, NSTEMI, now with new onset seizures, now with [facility] - Dr. Dudley had spoken to patient's daughter about goals of care, daughter wanted, to be comfortable, stop CPR and aggressive interventions - Dr. Dudley came back to the room, reported family wants life-sustaining measures to be stopped, stop CPR - At this point patient had PEA, no pulse, she is not breathing on her own, she is mottled up around the abdomen, pupils are fixed nonreactive, she does not withdraw from pain, she does have fasciculations around her mouth, no spontaneous chest rise, - Start comfort care measures - She has bilateral rib fractures, cardiac arrest episode x 2, seizures, will place comfort care orders to ensure no sufferinganswered, shared decision making, agreed for medical management for now - Time of 624pm 11/10/2024 Additional Data Confirmation of as documented by pronouncing clinician: no pulse, no respirations, no heart sounds and pupils fixed and dilated Family: at bedside and contacted Additional persons at bedside: nursing staff Attending/PCP notified?: I am attending Was code activated?: Yes Autopsy requested?: No Advance directives?: No Discharge Plan Discharge Patient Disposition: Condition: Stable Prescriptions: No Action aspirin 81 mg tablet,delayed release (DR/EC) 81 mg PO DAILY ropinirole 4 mg tablet 6 mg PO TID metoprolol tartrate 25 mg tablet 12.5 mg PO BID lovastatin 40 mg tablet 40 mg PO DAILY pantoprazole [Protonix] 40 mg tablet,delayed release (DR/EC) 40 mg PO BID polyethylene glycol 3350 [Miralax] 17 gram/dose powder 17 gm PO DAILY PRN (Reason: Constipation) nitroglycerin 0.4 mg tablet, sublingual 0.4 mg SUBLINGUAL Q5M PRN (Reason: Chest Pain) carbidopa-levodopa 25-100 mg tablet extended release 1 tab PO TID fluorouracil 5 % cream 1 applic TOPICAL BID valsartan-hydrochlorothiazide 160-12.5 mg tablet 1 tab PO DAILY isosorbide mononitrate 60 mg tablet extended release 24 hr 60 mg PO QAM trazodone 100 mg tablet 100 mg PO BEDTIME loratadine 10 mg Tablet 10 mg PO DAILY Dulera 200-5 mcg/actuation HFA aerosol inhaler 2 puff INHALATION BID potassium chloride 10 mEq tablet extended release 10 meq PO DAILY gabapentin 100 mg capsule 100 mg PO TID Referrals: Pallavi Quesada FNP [Primary Care Provider, Nurse Practitioner] DS Attestations Time Spent in /Discharge Care*: critical care time Critical Care Time (min): 45 Quality - AMI: AMI present?: No Quality - Stroke: CVA present?: No Quality - VTE: VTE present?: No Coding Level of Care Code Acute Code for [facility] Diagnoses Brain anoxic injury G93.1 Cardiac arrest I46.9 NSTEMI (non-ST elevated myocardial infarction) I21.4 Atrial fibrillation with RVR I48.91
--- NOTE | 2024-11-10 18:59 | PC.NURSE ---
This nurse was in CT with another patient when ike miller was called to this patients room, upon entering room found cpr in progress, see code sheet. [facility] called [address] Avelar at bedside, family called and are at bedside at this time
--- NOTE | 2024-11-10 19:19 | PC.NURSE ---
MTS notified of patient passing, reference number [id number], MTS to notify staff once patient is released
--- NOTE | 2024-11-11 06:11 | PC.NURSE ---
Jo Ann [facility] Coordinater released patient. [facility] called about body. [facility] came and picked up patient and departed unit at 2119.
== END 2024-11-10 22:00 | disposition expired ==
LOC: ER 11:22 → ICU 12:41
PROVIDERS: Student in an Organized Health Care Education/Training Program; Admitting Provider Family Medicine; Emergency Provider Emergency Medicine; PCP Registered Nurse; Visit Provider Family Medicine
DX: I21.4 Non-ST elevation (NSTEMI) myocardial infarction (principal); J96.01 Acute respiratory failure with hypoxia; G93.1 Anoxic brain damage, not elsewhere classified; N17.9 Acute kidney failure, unspecified; M96.A3 Multiple fractures of ribs associated with chest compression and cardiopulmonary resuscitation; I46.2 Cardiac arrest due to underlying cardiac condition; I48.91 Unspecified atrial fibrillation; N18.9 Chronic kidney disease, unspecified; R56.9 Unspecified convulsions; G20.A1 Parkinson's disease without dyskinesia, without mention of fluctuations; I25.2 Old myocardial infarction; Z79.82 Long term (current) use of aspirin
CPT/HCPCS: 36600; 70450; 71045; 71275; 80051; 80053; 80061; 81001; 82330; 82550; 82803; 82805; 83605; 83735; 84145; 84443; 84484; 85025; 85378; 85610; 86140; 86850; 86900; 87040; 87070; 87205; 93005; 93306; 93970; 94002; 94664; 94799; 96365; 96366; 96367; 96368; 96375; 99291; A4222; J0283; J1644; J2470; J2543; J3010; J3370; J7030; J7050; J9999